=== PATIENT | female | born 1950 | race Two or more races ===

== ENCOUNTER 2020-11-28 19:24 | Emergency (ER) | payer MEDICARE, MEDICAID ==
[~2020-11-28] VITALS: Ht 162.6 cm; Wt 94.8 kg
[~2020-11-28 19:24] MED LIST: GABA300C10 PO; HYDR-2598 PO; LOSA100T30 PO; OXYB5TAB24 PO; PRAV20TA3 PO
[2020-11-28] MEDS ORDERED: ACETAMINOPHEN 500 MG TAB PO ONE (20:30)
[2020-11-28 21:00] VITALS: BP 149/78
[2020-11-28 21:27] LABS: Basophils # (auto) 0 10 ^3/uL (0-0.2); Basophils % (auto) 0.3 % (0.0-2.0); Eosinophils # (auto) 0.3 10 ^3/uL (0-0.8); Eosinophils % (auto) 3.9 % (0.0-7.0); Hematocrit 38.8 % (36.0-46.0); Hemoglobin 13.3 g/dL (12.2-16.2); Lymphocytes # (auto) 1.1 10 ^3/uL (0.4-5.4); Lymphocytes % (auto) 16.6 % (10.0-50.0); Mean Corpuscular Hemoglobin 28.4 pg (28.0-32.0); Mean Corpuscular Hgb Conc. 34.2 g/dL (32.0-36.0); Mean Corpuscular Volume 83.1 fL (80.0-100.0); Monocytes # (auto) 0.6 10 ^3/uL (0-1.3); Monocytes % (auto) 9.1 % (0.0-12.0); Neutrophils # (auto) 4.8 10 ^3/uL (1.6-8.6); Neutrophils % (auto) 70.1 % (37.0-80.0); Nucleated Red Blood Cells % 0.4 %; Platelet Count (auto) 225 10^3/uL (140-450); Red Blood Cells 4.67 10^6/uL (4.0-5.20); Red Cell Distribution Width 15.3 % (11.8-14.3); White Blood Cell 6.8 10^3/uL (4.4-10.8)
[2020-11-28 21:38] LABS: Anion Gap 7 (5-15); Blood Urea Nitrogen 34 mg/dL (7-18); Calcium 8.4 mg/dL (8.5-10.1); Carbon Dioxide 25 mmol/L (21-32); Chloride 101 mmol/L (98-107); Glucose 262 mg/dL (74-106); Magnesium 2.2 mg/dL (1.6-2.6); Sodium 133 mmol/L (136-145)
[2020-11-28 21:42] LABS: Alanine Aminotransferase 28 U/L (13-56); Alkaline Phosphatase 118 U/L (45-117); Aspartate Aminotransferase 16 U/L (15-37); BUN/Creatinine Ratio 24.8; Bilirubin, Total 0.5 mg/dL (0.2-1.0); GFR African American 49 mL/min; GFR Non-African American 40 mL/min
== END 2020-11-28 22:49 | disposition home or self-care (01) ==
LOC: ER 19:24
DX: U07.1 COVID-19 (principal); J12.82 Pneumonia due to coronavirus disease 2019; E11.9 Type 2 diabetes mellitus without complications; K21.9 Gastro-esophageal reflux disease without esophagitis; E78.5 Hyperlipidemia, unspecified; I10 Essential (primary) hypertension; Z90.49 Acquired absence of other specified parts of digestive tract; Z90.710 Acquired absence of both cervix and uterus
CPT/HCPCS: 36415; 71045; 80053; 83735; 83880; 84484; 85025; 87426; 93005; 99285; C9803; U0003

== ENCOUNTER 2022-04-28 09:38 | Emergency (ER) | payer MEDICARE, MEDICAID ==
[~2022-04-28] VITALS: Ht 162.6 cm; Wt 92.5 kg
[2022-04-28 11:00] VITALS: BP 112/60
== END 2022-04-28 13:23 | disposition home or self-care (01) ==
LOC: ER 09:38
DX: M79.671 Pain in right foot (principal); R22.41 Localized swelling, mass and lump, right lower limb; I10 Essential (primary) hypertension; E11.9 Type 2 diabetes mellitus without complications; E03.9 Hypothyroidism, unspecified; K21.9 Gastro-esophageal reflux disease without esophagitis; J45.909 Unspecified asthma, uncomplicated; Z90.49 Acquired absence of other specified parts of digestive tract; Z90.710 Acquired absence of both cervix and uterus; Z79.899 Other long term (current) drug therapy
CPT/HCPCS: 73630

== ENCOUNTER 2022-11-24 16:56 | Emergency (ER) | payer MEDICARE, MEDICAID, OTHER ==
[~2022-11-24] VITALS: Ht 162.6 cm; Wt 92.7 kg
[2022-11-24 17:30] VITALS: BP 136/74
== END 2022-11-24 20:18 | disposition home or self-care (01) ==
LOC: ER 16:56
DX: S39.012A Strain of muscle, fascia and tendon of lower back, initial encounter (principal); S16.1XXA Strain of muscle, fascia and tendon at neck level, initial encounter; I10 Essential (primary) hypertension; E11.9 Type 2 diabetes mellitus without complications; J45.909 Unspecified asthma, uncomplicated; K21.9 Gastro-esophageal reflux disease without esophagitis; E78.5 Hyperlipidemia, unspecified; E03.9 Hypothyroidism, unspecified; G89.29 Other chronic pain; M54.50 Low back pain, unspecified; Z79.899 Other long term (current) drug therapy; V43.52XA Car driver injured in collision with other type car in traffic accident, initial encounter; Y93.89 Activity, other specified; Y92.410 Unspecified street and highway as the place of occurrence of the external cause; Y99.8 Other external cause status
CPT/HCPCS: 72040; 72100

== ENCOUNTER 2023-01-17 11:31 | Emergency (ER) | payer MEDICARE, MEDICAID, OTHER ==
[~2023-01-17] VITALS: Ht 162.6 cm; Wt 93.3 kg
[2023-01-17 12:30] VITALS: BP 135/74
[2023-01-17] MEDS ORDERED: CEPH-510 PO (13:04)
[2023-01-17] MEDS ORDERED: ERY05OO OP (13:04)
[2023-01-17] MEDS ORDERED: ACET1CAP14 PO (13:05)
[2023-01-17] MEDS ORDERED: ACETAMINOPHEN 500 MG TAB PO ONE (13:15)
[2023-01-17] MEDS ORDERED: cefTRIAXone SOD 1,000 MG VL IM ONE (13:15)
== END 2023-01-17 13:17 | disposition home or self-care (01) ==
LOC: ER 11:31
DX: H00.014 Hordeolum externum left upper eyelid (principal); J45.909 Unspecified asthma, uncomplicated; E11.9 Type 2 diabetes mellitus without complications; K21.9 Gastro-esophageal reflux disease without esophagitis; E78.5 Hyperlipidemia, unspecified; I10 Essential (primary) hypertension; Z90.49 Acquired absence of other specified parts of digestive tract; Z90.710 Acquired absence of both cervix and uterus
CPT/HCPCS: 96372; 99283; J0696

== ENCOUNTER 2023-03-04 10:32 | Emergency (ER) | payer MEDICARE, MEDICAID ==
[~2023-03-04] VITALS: Ht 165.1 cm; Wt 93.9 kg
[~2023-03-04 10:32] MED LIST changes: +ACET1CAP14 PO; +CEPH-510 PO; +ERY05OO OP
[2023-03-04] MEDS ORDERED: DexAMETHasone SOD PHOS 10MG/1ML VIAL INJ IM ONE (10:45)
[2023-03-04] MEDS ORDERED: KETOROLAC TROMETH 60MG/2ML VIAL IM ONE (10:45)
[2023-03-04 11:10] LABS: Basophils # (auto) 0 10 ^3/uL (0-0.2); Basophils % (auto) 0.3 % (0.0-2.0); Eosinophils # (auto) 0.1 10 ^3/uL (0-0.8); Eosinophils % (auto) 1.5 % (0.0-7.0); Hematocrit 37.8 % (36.0-46.0); Hemoglobin 12.7 g/dL (12.2-16.2); Lymphocytes # (auto) 0.9 10 ^3/uL (0.4-5.4); Lymphocytes % (auto) 9.1 % (10.0-50.0); Mean Corpuscular Hemoglobin 27.6 pg (28.0-32.0); Mean Corpuscular Hgb Conc. 33.7 g/dL (32.0-36.0); Mean Corpuscular Volume 81.9 fL (80.0-100.0); Monocytes # (auto) 0.7 10 ^3/uL (0-1.3); Monocytes % (auto) 7.5 % (0.0-12.0); Neutrophils # (auto) 7.8 10 ^3/uL (1.6-8.6); Neutrophils % (auto) 81.6 % (37.0-80.0); Red Blood Cells 4.62 10^6/uL (4.0-5.20); Red Cell Distribution Width 14.4 % (11.8-14.3); White Blood Cell 9.6 10^3/uL (4.4-10.8)
[2023-03-04 11:32] LABS: Albumin 3.2 g/dL (3.4-5.0); Calcium 8.8 mg/dL (8.5-10.1); Potassium 3.6 mmol/L (3.5-5.1)
[2023-03-04 11:36] LABS: BUN/Creatinine Ratio 18.3 (10.0-20.0); Bilirubin, Total 0.8 mg/dL (0.2-1.0); Total Protein 6.4 g/dL (6.4-8.2)
[2023-03-04] MEDS ORDERED: LORA10CA7 PO (16:26)
[2023-03-04] MEDS ORDERED: BENZ100C19 PO (16:26)
[2023-03-04 16:38] VITALS: BP 110/80
== END 2023-03-04 16:38 | disposition home or self-care (01) ==
LOC: ER 10:32
DX: J06.9 Acute upper respiratory infection, unspecified (principal); R51.9 Headache, unspecified; J45.909 Unspecified asthma, uncomplicated; E11.9 Type 2 diabetes mellitus without complications; K21.9 Gastro-esophageal reflux disease without esophagitis; E78.5 Hyperlipidemia, unspecified; I10 Essential (primary) hypertension; Z90.49 Acquired absence of other specified parts of digestive tract; Z90.710 Acquired absence of both cervix and uterus; Z88.1 Allergy status to other antibiotic agents
CPT/HCPCS: 36415; 71046; 80053; 83880; 84484; 85025; 85652; 87070; 87804; 87880; 96372; 99284; J1100; J1885

== ENCOUNTER 2023-05-12 13:52 | Inpatient (IN) | payer MEDICARE, MEDICAID ==
[~2023-05-12] VITALS: Ht 162.6 cm; Wt 103.7 kg
[~2023-05-12 13:52] MED LIST changes: +BENZ100C19 PO; +GABA-1250 PO; -GABA300C10 PO; +LORA10CA PO
[2023-05-12] MEDS ORDERED: ASPirin 325 MG TAB PO ONE (14:15)
[2023-05-12 14:25] LABS: Basophils # (auto) 0 10 ^3/uL (0-0.2); Basophils % (auto) 0.4 % (0.0-2.0); Eosinophils # (auto) 0 10 ^3/uL (0-0.8); Lymphocytes # (auto) 0.9 10 ^3/uL (0.4-5.4); Nucleated Red Blood Cells % 0.1 %
[2023-05-12 14:27] LABS: Eosinophils % (auto) 0.3 % (0.0-7.0); Hemoglobin 13.8 g/dL (12.2-16.2); Lymphocytes % (auto) 8.1 % (10.0-50.0); Mean Corpuscular Hemoglobin 26.4 pg (28.0-32.0); Mean Corpuscular Hgb Conc. 32.2 g/dL (32.0-36.0); Mean Corpuscular Volume 82.2 fL (80.0-100.0); Monocytes # (auto) 0.2 10 ^3/uL (0-1.3); Monocytes % (auto) 2.3 % (0.0-12.0); Neutrophils # (auto) 9.7 10 ^3/uL (1.6-8.6); Neutrophils % (auto) 88.9 % (37.0-80.0); Red Blood Cells 5.23 10^6/uL (4.0-5.20); Red Cell Distribution Width 16.3 % (11.8-14.3); White Blood Cell 10.9 10^3/uL (4.4-10.8)
[2023-05-12 14:44] LABS: Calcium 9.4 mg/dL (8.5-10.1); Potassium 4.5 mmol/L (3.5-5.1)
[2023-05-12 14:48] LABS: BUN/Creatinine Ratio 22.5 (10.0-20.0); Bilirubin, Total 0.4 mg/dL (0.2-1.0); Total Protein 7.8 g/dL (6.4-8.2)
[2023-05-12 14:54] LABS: Urine Bacteria NONE SEEN /hpf (None Seen); Urine Blood Negative /uL (Negative); Urine Specific Gravity 1.019 (1.001-1.035); Urine WBC <1 /hpf (0 - 5)
[2023-05-12] MEDS ORDERED: MORPHINE SULFATE 4 MG/ML SYR/VIAL IV PRN (16:30)
[2023-05-12] MEDS ORDERED: NITROGLYCERIN 0.4 MG SL TAB SL PRN (16:30)
[2023-05-12] MEDS ORDERED: ONDANSETRON HCL 4 MG/2 ML VIAL IV PRN (16:30)
[2023-05-12] MEDS ORDERED: ACETAMINOPHEN 325 MG TAB PO PRN (16:30)
[2023-05-12 17:23] LABS: Creatinine, Urine 142 mg/dL (30.0-125.0); Sodium Urine 55 mmol/L (40-220)
[2023-05-12 17:24] LABS: INR 0.95 (0.9-1.15)
[2023-05-12 20:04] VITALS: PULSE 95; RESP 16; O2SAT 93
[2023-05-12] MEDS: ENOXAPARIN SOD 100 MG/1 ML SYRINGE SC SCH (23:08)
[2023-05-12] MEDS: GABAPENTIN 300 MG CAP PO SCH (23:08)
[2023-05-12] MEDS: OXYBUTYNIN CHL 5 MG TAB PO SCH (23:08)
[2023-05-13] MEDS: OXYBUTYNIN CHL 5 MG TAB PO SCH ×3 (06:37→21:20)
[2023-05-13] MEDS: GABAPENTIN 300 MG CAP PO SCH ×3 (06:37→21:20)
[2023-05-13 06:54] VITALS: PULSE 72; RESP 19; O2SAT 94
[2023-05-13 07:35] LABS: Basophils # (auto) 0 10 ^3/uL (0-0.2); Basophils % (auto) 0.4 % (0.0-2.0); Eosinophils # (auto) 0.1 10 ^3/uL (0-0.8); Eosinophils % (auto) 1.6 % (0.0-7.0); Hematocrit 39.5 % (36.0-46.0); Hemoglobin 12.8 g/dL (12.2-16.2); Lymphocytes # (auto) 1.4 10 ^3/uL (0.4-5.4); Lymphocytes % (auto) 18.2 % (10.0-50.0); Mean Corpuscular Hemoglobin 26.8 pg (28.0-32.0); Mean Corpuscular Hgb Conc. 32.4 g/dL (32.0-36.0); Mean Corpuscular Volume 82.5 fL (80.0-100.0); Monocytes # (auto) 0.6 10 ^3/uL (0-1.3); Monocytes % (auto) 7.7 % (0.0-12.0); Neutrophils # (auto) 5.4 10 ^3/uL (1.6-8.6); Neutrophils % (auto) 72.1 % (37.0-80.0); Red Blood Cells 4.79 10^6/uL (4.0-5.20); Red Cell Distribution Width 16.7 % (11.8-14.3); White Blood Cell 7.5 10^3/uL (4.4-10.8)
[2023-05-13 08:00] VITALS: BP 93/48; PULSE 71; PULSE 75; RESP 18; TEMP 98; O2SAT 98
[2023-05-13 08:54] LABS: Albumin 3.3 g/dL (3.4-5.0); BUN/Creatinine Ratio 26.3 (10.0-20.0); Bilirubin, Total 0.5 mg/dL (0.2-1.0); Calcium 9.1 mg/dL (8.5-10.1); Potassium 3.5 mmol/L (3.5-5.1)
[2023-05-13 09:00] VITALS: BP 93/48; PULSE 71; RESP 18; TEMP 98; O2SAT 98
[2023-05-13] MEDS ORDERED: PRAVASTATIN SODIUM 20 MG TAB PO SCH (10:00)
[2023-05-13] MEDS ORDERED: HCTZ 25 MG TAB PO SCH (10:00)
[2023-05-13] MEDS ORDERED: LOSARTAN POTASSIUM 50 MG TAB PO SCH (10:00)
[2023-05-13] MEDS: LOSARTAN POTASSIUM 50 MG TAB PO SCH (10:00)
[2023-05-13] MEDS ORDERED: ALENDRONATE SODIUM 10 MG TAB PO SCH (11:15)
[2023-05-13] MEDS ORDERED: SERT-160 PO (11:27)
[2023-05-13] MEDS ORDERED: FAMO20TA10 PO (11:27)
[2023-05-13] MEDS ORDERED: HYDR2.5O TOP (11:27)
[2023-05-13] MEDS ORDERED: METF-1145 PO (11:27)
[2023-05-13] MEDS: DOCUSATE SOD 100 MG CAP PO SCH (11:29)
[2023-05-13] MEDS: ASPirin 81 mg TAB PO SCH (11:29)
[2023-05-13] MEDS: ENOXAPARIN SOD 100 MG/1 ML SYRINGE SC SCH (11:31)
[2023-05-13] MEDS: PANTOPRAZOLE 40 MG/10 ML VIAL INJ IV SCH (11:31)
[2023-05-13 12:00] LABS: Cholesterol 236 mg/dL (< 200); Triglycerides 180 mg/dL (< 150)
[2023-05-13] MEDS ORDERED: DEXTROSE (50%) 50ML SYRG IV PRN (12:00)
[2023-05-13 12:01] LABS: HDL Cholesterol 58 mg/dL (40-59); LDL Cholesterol 149 mg/dL (< 100)
[2023-05-13] MEDS: InsuLIN REG 1unit/0.01ml Soln (100units/ml) SC SCH ×2 (17:00→21:25)
[2023-05-13 17:05] VITALS: BP 132/68; PULSE 71; RESP 18; TEMP 97.8; O2SAT 93
[2023-05-13] MEDS: ACCU-CHEK COMFORT CURVE STRIP VI SCH ×2 (17:19→21:24)
[2023-05-13 20:00] VITALS: PULSE 76; PULSE 83; RESP 18; O2SAT 98
[2023-05-13 22:00] VITALS: BP 139/73; PULSE 90; RESP 19; TEMP 98.5; O2SAT 93
[2023-05-13] MEDS ORDERED: ATORVASTATIN 20 MG TAB PO SCH (22:00)
[2023-05-14] VITALS (19 sets, daily range): BP systolic 108–141; BP diastolic 60–88; PULSE 68–99; RESP 16–24; TEMP 98.1–99.3; O2SAT 89–99
[2023-05-14] MEDS: HYDROcodone-ACET 5/325MG TAB PO PRN ×4 (02:24→22:46)
[2023-05-14] MEDS: OXYBUTYNIN CHL 5 MG TAB PO SCH ×3 (06:19→21:24)
[2023-05-14] MEDS: GABAPENTIN 300 MG CAP PO SCH ×3 (06:19→21:24)
[2023-05-14] MEDS: ACCU-CHEK COMFORT CURVE STRIP VI SCH ×4 (06:20→22:40)
[2023-05-14] MEDS: InsuLIN REG 1unit/0.01ml Soln (100units/ml) SC SCH ×4 (06:20→22:45)
[2023-05-14 06:37] LABS: Basophils # (auto) 0 10 ^3/uL (0-0.2); Basophils % (auto) 0.4 % (0.0-2.0); Eosinophils # (auto) 0.1 10 ^3/uL (0-0.8); Eosinophils % (auto) 1.2 % (0.0-7.0); Hematocrit 37.5 % (36.0-46.0); Hemoglobin 12.2 g/dL (12.2-16.2); Lymphocytes # (auto) 1.2 10 ^3/uL (0.4-5.4); Lymphocytes % (auto) 12.2 % (10.0-50.0); Mean Corpuscular Hemoglobin 27.1 pg (28.0-32.0); Mean Corpuscular Hgb Conc. 32.7 g/dL (32.0-36.0); Mean Corpuscular Volume 82.8 fL (80.0-100.0); Monocytes # (auto) 0.9 10 ^3/uL (0-1.3); Monocytes % (auto) 8.6 % (0.0-12.0); Neutrophils # (auto) 7.8 10 ^3/uL (1.6-8.6); Neutrophils % (auto) 77.6 % (37.0-80.0); Red Blood Cells 4.53 10^6/uL (4.0-5.20); Red Cell Distribution Width 16.7 % (11.8-14.3); White Blood Cell 10.1 10^3/uL (4.4-10.8)
[2023-05-14 06:47] LABS: Potassium 3.2 mmol/L (3.5-5.1)
[2023-05-14 06:59] LABS: Albumin 3.3 g/dL (3.4-5.0); BUN/Creatinine Ratio 28.5 (10.0-20.0); Bilirubin, Total 0.4 mg/dL (0.2-1.0); Calcium 9.1 mg/dL (8.5-10.1)
[2023-05-14] MEDS ORDERED: LEVOTHYROXINE SODIUM 50 MCG TAB PO SCH (07:00)
[2023-05-14] MEDS ORDERED: POTASSIUM CHLORIDE 8 MEQ TAB PO ONE (07:45)
[2023-05-14] MEDS ORDERED: ATORVASTATIN 20 MG TAB PO SCH (08:00)
[2023-05-14] MEDS ORDERED: COLCHICINE 0.6 MG CAP PO ONE (09:30)
[2023-05-14] MEDS: CHOLECALCIFEROL (VITD3) 2,000 UNIT CAP/TAB PO SCH (10:03)
[2023-05-14] MEDS: ASPirin 81 mg TAB PO SCH (10:03)
[2023-05-14] MEDS: DOCUSATE SOD 100 MG CAP PO SCH (10:04)
[2023-05-14] MEDS: LOSARTAN POTASSIUM 50 MG TAB PO SCH (10:04)
[2023-05-14] MEDS: SERTRALINE HCL 50 MG TAB PO SCH (10:04)
[2023-05-14] MEDS: ALLOPURINOL 300 MG TAB PO SCH (10:04)
[2023-05-14] MEDS: ENOXAPARIN SOD 40 MG/0.4 ML SYRINGE SC SCH (10:04)
[2023-05-14] MEDS: PANTOPRAZOLE 40 MG/10 ML VIAL INJ IV SCH (10:04)
[2023-05-14] MEDS ORDERED: KETOROLAC TROMETH 30 MG/ML 1ML VIAL IV ONE (10:15)
[2023-05-14] MEDS ORDERED: REGADENOSON 0.4 MG/5 ML SYRG IV ONE ×2 (14:03→14:15)
[2023-05-14] MEDS ORDERED: PROMETHAZINE HCL 25 MG/ML 1ML IV ONE (15:15)
[2023-05-14] MEDS ORDERED: ANGIOMAX 250 MG VIAL IV ONE (17:04)
[2023-05-14] MEDS ORDERED: HEPARIN SODIUM (PORCINE) 5000 UNITS/ML 1ML VIAL ONE (17:04)
[2023-05-14] MEDS ORDERED: VERAPAMIL 2.5MG/ML INJ 2ML VIAL IV ONE (17:05)
[2023-05-14] MEDS ORDERED: MIDAZOLAM HCL 2MG/2ML 2ml VIAL (1mg/ml) ONE (17:05)
[2023-05-14] MEDS ORDERED: SODIUM CHL 0.9% 0 ML ONE (17:05)
[2023-05-14] MEDS ORDERED: fentaNYL CITRATE 100 MCG/2 ML VL ONE (17:05)
[2023-05-14] MEDS ORDERED: LIDOCAINE 2%HCL (LOCAL ANESTH.) INJ 20ML MDV ONE (17:05)
[2023-05-14] MEDS ORDERED: hydrALAZINE HCL 20 MG/ML VL ONE (17:55)
[2023-05-14] MEDS: COLCHICINE 0.6 MG CAP PO SCH (21:24)
[2023-05-15] VITALS (8 sets, daily range): BP systolic 103–130; BP diastolic 54–69; PULSE 74–88; RESP 16–22; TEMP 98.2–99.1; O2SAT 92–97
[2023-05-15] MEDS: GABAPENTIN 300 MG CAP PO SCH ×3 (06:08→21:17)
[2023-05-15] MEDS: OXYBUTYNIN CHL 5 MG TAB PO SCH ×3 (06:08→21:17)
[2023-05-15 06:20] LABS: Basophils # (auto) 0 10 ^3/uL (0-0.2); Basophils % (auto) 0.3 % (0.0-2.0); Eosinophils # (auto) 0.1 10 ^3/uL (0-0.8); Eosinophils % (auto) 0.6 % (0.0-7.0); Hematocrit 36.5 % (36.0-46.0); Hemoglobin 11.9 g/dL (12.2-16.2); Lymphocytes # (auto) 0.9 10 ^3/uL (0.4-5.4); Lymphocytes % (auto) 10.2 % (10.0-50.0); Mean Corpuscular Hgb Conc. 32.5 g/dL (32.0-36.0); Mean Corpuscular Volume 83.1 fL (80.0-100.0); Monocytes # (auto) 1.1 10 ^3/uL (0-1.3); Monocytes % (auto) 12.3 % (0.0-12.0); Neutrophils # (auto) 7.1 10 ^3/uL (1.6-8.6); Neutrophils % (auto) 76.6 % (37.0-80.0); Nucleated Red Blood Cells % 0.1 %; Red Blood Cells 4.39 10^6/uL (4.0-5.20); Red Cell Distribution Width 16.9 % (11.8-14.3); White Blood Cell 9.2 10^3/uL (4.4-10.8)
[2023-05-15 06:56] LABS: Calcium 8.6 mg/dL (8.5-10.1); Potassium 3.6 mmol/L (3.5-5.1)
[2023-05-15] MEDS: InsuLIN REG 1unit/0.01ml Soln (100units/ml) SC SCH ×4 (06:58→21:23)
[2023-05-15 06:59] LABS: BUN/Creatinine Ratio 27.3 (10.0-20.0)
[2023-05-15] MEDS: LEVOTHYROXINE SODIUM 50 MCG TAB PO SCH (07:04)
[2023-05-15] MEDS: ACCU-CHEK COMFORT CURVE STRIP VI SCH ×4 (07:04→21:23)
[2023-05-15] MEDS: CHOLECALCIFEROL (VITD3) 2,000 UNIT CAP/TAB PO SCH (09:56)
[2023-05-15] MEDS: ASPirin 81 mg TAB PO SCH (09:56)
[2023-05-15] MEDS: GEMFIBROZIL 600 MG TAB PO SCH (09:56)
[2023-05-15] MEDS: DOCUSATE SOD 100 MG CAP PO SCH (09:56)
[2023-05-15] MEDS: PANTOPRAZOLE 40 MG/10 ML VIAL INJ IV SCH (09:56)
[2023-05-15] MEDS: ALLOPURINOL 300 MG TAB PO SCH (09:56)
[2023-05-15] MEDS: COLCHICINE 0.6 MG CAP PO SCH ×2 (09:57→21:17)
[2023-05-15] MEDS: SERTRALINE HCL 50 MG TAB PO SCH (09:58)
[2023-05-15] MEDS: ENOXAPARIN SOD 40 MG/0.4 ML SYRINGE SC SCH (09:58)
[2023-05-15] MEDS: LOSARTAN POTASSIUM 50 MG TAB PO SCH (10:01)
[2023-05-15] MEDS: HYDROcodone-ACET 5/325MG TAB PO PRN ×2 (10:01→21:18)
[2023-05-16] VITALS (7 sets, daily range): BP systolic 95–119; BP diastolic 38–61; PULSE 74–83; RESP 16–20; TEMP 97.7–98.7; O2SAT 90–93
[2023-05-16] MEDS: ACCU-CHEK COMFORT CURVE STRIP VI SCH ×5 (06:00→22:03)
[2023-05-16] MEDS: OXYBUTYNIN CHL 5 MG TAB PO SCH ×3 (06:09→22:01)
[2023-05-16] MEDS: GABAPENTIN 300 MG CAP PO SCH ×3 (06:09→22:01)
[2023-05-16] MEDS: LEVOTHYROXINE SODIUM 50 MCG TAB PO SCH (06:12)
[2023-05-16] MEDS: InsuLIN REG 1unit/0.01ml Soln (100units/ml) SC SCH ×4 (06:21→22:00)
[2023-05-16] MEDS: ASPirin 81 mg TAB PO SCH (09:23)
[2023-05-16] MEDS: PANTOPRAZOLE 40 MG/10 ML VIAL INJ IV SCH (09:23)
[2023-05-16] MEDS: COLCHICINE 0.6 MG CAP PO SCH ×2 (09:23→22:01)
[2023-05-16] MEDS: HYDROcodone-ACET 5/325MG TAB PO PRN ×3 (09:23→22:07)
[2023-05-16] MEDS: ENOXAPARIN SOD 40 MG/0.4 ML SYRINGE SC SCH (09:23)
[2023-05-16] MEDS: CHOLECALCIFEROL (VITD3) 2,000 UNIT CAP/TAB PO SCH (09:24)
[2023-05-16] MEDS: DOCUSATE SOD 100 MG CAP PO SCH (09:24)
[2023-05-16] MEDS: ALLOPURINOL 300 MG TAB PO SCH (09:24)
[2023-05-16] MEDS: GEMFIBROZIL 600 MG TAB PO SCH (09:24)
[2023-05-16] MEDS: SERTRALINE HCL 50 MG TAB PO SCH (09:24)
[2023-05-16] MEDS: LOSARTAN POTASSIUM 50 MG TAB PO SCH (09:27)
[2023-05-17] VITALS (7 sets, daily range): BP systolic 103–139; BP diastolic 53–65; PULSE 68–77; RESP 17–21; TEMP 97.8–98.5; O2SAT 92–95
[2023-05-17] MEDS: LEVOTHYROXINE SODIUM 50 MCG TAB PO SCH (05:47)
[2023-05-17] MEDS: GABAPENTIN 300 MG CAP PO SCH ×3 (05:47→21:19)
[2023-05-17] MEDS: OXYBUTYNIN CHL 5 MG TAB PO SCH ×3 (05:53→21:19)
[2023-05-17] MEDS: InsuLIN REG 1unit/0.01ml Soln (100units/ml) SC SCH ×4 (05:55→21:27)
[2023-05-17] MEDS: ENOXAPARIN SOD 40 MG/0.4 ML SYRINGE SC SCH (10:00)
[2023-05-17] MEDS: DOCUSATE SOD 100 MG CAP PO SCH (10:00)
[2023-05-17] MEDS: GEMFIBROZIL 600 MG TAB PO SCH (10:22)
[2023-05-17] MEDS: COLCHICINE 0.6 MG CAP PO SCH ×2 (10:22→21:19)
[2023-05-17] MEDS: ASPirin 81 mg TAB PO SCH (10:22)
[2023-05-17] MEDS: ALLOPURINOL 300 MG TAB PO SCH (10:22)
[2023-05-17] MEDS: SERTRALINE HCL 50 MG TAB PO SCH (10:22)
[2023-05-17] MEDS: CHOLECALCIFEROL (VITD3) 2,000 UNIT CAP/TAB PO SCH (10:22)
[2023-05-17] MEDS: PANTOPRAZOLE 40 MG/10 ML VIAL INJ IV SCH (10:23)
[2023-05-17] MEDS: LOSARTAN POTASSIUM 50 MG TAB PO SCH (10:23)
[2023-05-17 11:38] LABS: Basophils # (auto) 0 10 ^3/uL (0-0.2); Basophils % (auto) 0.6 % (0.0-2.0); Eosinophils # (auto) 0.2 10 ^3/uL (0-0.8); Eosinophils % (auto) 5.2 % (0.0-7.0); Hemoglobin 10.5 g/dL (12.2-16.2); Lymphocytes # (auto) 0.8 10 ^3/uL (0.4-5.4); Mean Corpuscular Hemoglobin 26.6 pg (28.0-32.0); Mean Corpuscular Hgb Conc. 32.5 g/dL (32.0-36.0); Monocytes # (auto) 0.5 10 ^3/uL (0-1.3); Neutrophils # (auto) 2.9 10 ^3/uL (1.6-8.6)
[2023-05-17 11:39] LABS: Hematocrit 32.4 % (36.0-46.0); Lymphocytes % (auto) 18.2 % (10.0-50.0); Mean Corpuscular Volume 82.1 fL (80.0-100.0); Monocytes % (auto) 10.2 % (0.0-12.0); Neutrophils % (auto) 65.8 % (37.0-80.0); Nucleated Red Blood Cells % 0.1 %; Red Blood Cells 3.95 10^6/uL (4.0-5.20); Red Cell Distribution Width 16.7 % (11.8-14.3); White Blood Cell 4.4 10^3/uL (4.4-10.8)
[2023-05-17] MEDS: ACCU-CHEK COMFORT CURVE STRIP VI SCH ×3 (11:56→21:19)
[2023-05-17 12:04] LABS: Potassium 4.1 mmol/L (3.5-5.1)
[2023-05-17 12:06] LABS: BUN/Creatinine Ratio 36.1 (10.0-20.0); Uric Acid 4.9 mg/dL (2.6-6.0)
[2023-05-17] MEDS: HYDROcodone-ACET 5/325MG TAB PO PRN ×2 (15:35→21:19)
[2023-05-18 05:00] VITALS: BP 115/66; PULSE 67; RESP 20; TEMP 98; O2SAT 92
[2023-05-18] MEDS: ACCU-CHEK COMFORT CURVE STRIP VI SCH ×3 (06:09→17:00)
[2023-05-18] MEDS: OXYBUTYNIN CHL 5 MG TAB PO SCH ×2 (06:09→14:03)
[2023-05-18] MEDS: LEVOTHYROXINE SODIUM 50 MCG TAB PO SCH (06:09)
[2023-05-18] MEDS: GABAPENTIN 300 MG CAP PO SCH ×2 (06:09→14:03)
[2023-05-18] MEDS: InsuLIN REG 1unit/0.01ml Soln (100units/ml) SC SCH ×3 (06:12→17:00)
[2023-05-18 08:00] VITALS: PULSE 64; RESP 18; O2SAT 94
[2023-05-18 09:00] VITALS: BP 125/62; PULSE 63; RESP 18; TEMP 98.4; O2SAT 94
[2023-05-18] MEDS: PANTOPRAZOLE 40 MG/10 ML VIAL INJ IV SCH (10:00)
[2023-05-18] MEDS: ENOXAPARIN SOD 40 MG/0.4 ML SYRINGE SC SCH (10:08)
[2023-05-18] MEDS: ASPirin 81 mg TAB PO SCH (10:08)
[2023-05-18] MEDS: GEMFIBROZIL 600 MG TAB PO SCH (10:08)
[2023-05-18] MEDS: CHOLECALCIFEROL (VITD3) 2,000 UNIT CAP/TAB PO SCH (10:08)
[2023-05-18] MEDS: SERTRALINE HCL 50 MG TAB PO SCH (10:09)
[2023-05-18] MEDS: ALLOPURINOL 300 MG TAB PO SCH (10:09)
[2023-05-18] MEDS: LOSARTAN POTASSIUM 50 MG TAB PO SCH (10:09)
[2023-05-18] MEDS: DOCUSATE SOD 100 MG CAP PO SCH (10:09)
[2023-05-18] MEDS: HYDROcodone-ACET 5/325MG TAB PO PRN ×2 (10:20→14:03)
[2023-05-18 13:00] VITALS: BP 144/78; PULSE 71; RESP 20; TEMP 98.1; O2SAT 97
[2023-05-18] MEDS ORDERED: LEVO125T PO (16:49)
[2023-05-18] MEDS ORDERED: ALL300T PO (16:49)
[2023-05-18 17:25] VITALS: BP 125/80; PULSE 72; RESP 20; TEMP 98.2; O2SAT 96
== END 2023-05-18 18:03 | disposition home or self-care (01) | DRG 287 ==
LOC: ER 13:52 → TELE 16:28 → TELE-WESTW 05-13 00:38
PROVIDERS: ADMIT Internal Medicine; ATTEND Emergency Medicine
PROC: B211YZZ Fluoroscopy of Multiple Coronary Arteries using Other Contrast (ICD-10-PCS; principal; 2023-05-14)
PROC: B215YZZ Fluoroscopy of Left Heart using Other Contrast (ICD-10-PCS; 2023-05-14)
PROC: 4A023N7 Measurement of Cardiac Sampling and Pressure, Left Heart, Percutaneous Approach (ICD-10-PCS; 2023-05-14)
DX: R07.9 Chest pain, unspecified (principal); J45.901 Unspecified asthma with (acute) exacerbation; E44.1 Mild protein-calorie malnutrition; N17.9 Acute kidney failure, unspecified; I50.32 Chronic diastolic (congestive) heart failure; E11.65 Type 2 diabetes mellitus with hyperglycemia; E78.5 Hyperlipidemia, unspecified; I35.9 Nonrheumatic aortic valve disorder, unspecified; E66.01 Morbid (severe) obesity due to excess calories; K21.9 Gastro-esophageal reflux disease without esophagitis; D72.829 Elevated white blood cell count, unspecified; F32.A Depression, unspecified; F41.9 Anxiety disorder, unspecified; Z96.652 Presence of left artificial knee joint; I36.1 Nonrheumatic tricuspid (valve) insufficiency; M25.461 Effusion, right knee; I11.0 Hypertensive heart disease with heart failure; E87.6 Hypokalemia; E03.9 Hypothyroidism, unspecified; Z79.1 Long term (current) use of non-steroidal anti-inflammatories (NSAID); Z79.899 Other long term (current) drug therapy; Z90.710 Acquired absence of both cervix and uterus; Z90.49 Acquired absence of other specified parts of digestive tract; Z83.3 Family history of diabetes mellitus; Z82.49 Family history of ischemic heart disease and other diseases of the circulatory system; Z79.84 Long term (current) use of oral hypoglycemic drugs; Z68.39 Body mass index [BMI] 39.0-39.9, adult; E87.70 Fluid overload, unspecified
CPT/HCPCS: 36415; 71046; 73560; 76881; 76942; 78452; 80048; 80053; 80061; 81001; 82570; 82962; 83036; 83735; 83880; 83986; 84300; 84443; 84484; 84550; 84560; 85025; 85379; 85610; 87205; 89051; 93005; 93017; 93306; 93458; 97110; 97116; 97163; 97530; 99152; C9113; G0378; J1815; J1885; J2250

== ENCOUNTER 2025-10-12 09:00 | Inpatient (IN) | payer MEDICARE, MEDICAID ==
[~2025-10-12] VITALS: Ht 162.6 cm; Wt 85.4 kg
[~2025-10-12 09:00] MED LIST changes: +ALL300T PO; -CEPH-510 PO; +FAMO20TA10 PO; +HYDR2.5O TOP; +LEVO125T PO; +METF-1145 PO; +SERT-160 PO
--- NOTE | 2025-10-12 09:29 | ED.PDOC ---
HPI Comments Patient is a 75-year-old female with past medical history of hypertension, diabetes, dyslipidemia, chronic stable angina, MINOCA anxiety, asthma, GERD, thyroid cancer s/p thyroidectomy, who comes in due to chest pain that has been ongoing for the past 5 days. According to the patient, she has been having chest pain which she describes as constant, pressure-like, warm, 5/10 intensity, worsened with standing and relieved by lying down in aspirin. Patient notes she went to her PCP at [facility] yesterday where she was told to go to the ER and she decided to come today. Notes having similar symptoms in the past but current symptoms persisted for longer. On review of systems patient is complaining of chills and shortness of breaths on exertion. Stress test in 2019 was positive for ischemia, subsequently left heart catheterization was done which at that t genaro showed no occlusion and INOCA Past medical history: hypertension, diabetes, dyslipidemia, chronic stable angina, MINOCA anxiety, asthma, GERD, thyroid cancer s/p thyroidectomy Past surgical history: Thyroidectomy, section, hysterectomy, appe ndectomy, cholecystectomy Social & Personal history: Denies smoking, alcohol, drugs. Lives at home with son. Allergies: Denies Patient seen and examined at bedside. Patient is alert and oriented to time, place person and responding to all questions. General: Chills Eyes: No Pain, No Vision change, No Conjunctivae inflammation, No Eyelid inflammation, No Other, No Redness ENT: No Ear pain, No Ear discharge, No Nose pain, No Nose discharge, No Nose congestion, No Mouth pain, No Mouth swelling, No Throat pain, No Throat swelling, No Other Cardiovascular: No Chest Pain, No Palpitations, No Orthopnea, No Paroxysmal No Dyspnea, No Edema, No Lt Headedness, No Other Respiratory: No Cough, No Dry, No Shortness of breath, SOB with exertion, No Wheezing, No Hemoptysis, No Pleuritic Pain, No Sputum, No Other Gastrointestinal: No Nausea, No Vomiting, No Abdominal Pain, No Diarrhea, No Constipation, No Melena, No Hematochezia, No Other Genitourinary: No Dysuria, No Frequency, No Incontinence, No Hematuria, No Retention, No Other Musculoskeletal: No other, No neck pain, No shoulder pain, No arm pain, No back pain, No hand pain, No leg pain, No foot pain Skin: No Rash, No Lesions, No Jaundice, No Bruising, No Other Chief Complaint: Chest Pain Time Seen by MD: 09:15 Primary Care Provider: TIGRE Allergies: Coded Allergies: NO KNOWN ALLERGIES (Unverified , 04/09/15) Home Meds Active Scripts Levothyroxine Sodium (Synthroid) 125 Mcg Tab, 1 TAB PO DAILY, #30 TAB 5 Refills Prov:WILLIE MCGINNIS MD 05/18/23 Allopurinol (ZYLOPRIM TABLET) 300 Mg Tb, 300 MG PO DAILY, #30 TAB 3 Refills Prov:WILLIE MCGINNIS MD 05/18/23 Benzonatate (Tessalon Perles) 100 Mg Cap, 1 CAP PO TID, #21 CAP Prov:MIRI REYES PAC 03/04/23 Loratadine (Claritin) 10 Mg Cap, 10 MG PO DAILY for 14 Days, #14 CAP Prov:MIRI REYES PAC 03/04/23 Acetaminophen (Tylenol) 325 Mg Cap, 325 MG PO Q4HPRN PRN, #30 CAP 0 Refills Take 1-2 caps po q4h prn for pain (Do not exceed 3,000mg of acetaminophen in 24 hours) Prov:MARGY JOSHI [facility] 01/17/23 Erythromycin (Erythromycin) 5 Mg/Gm Oin, 1 APPLIC OP QID for 10 Days, #3.5 GRAMS 0 Refills Apply 1cm ribbon to left eye QID for 10 days. Prov:MARGY JOSHI [facility] 01/17/23 Reported Medications Metformin Hydrochloride (Metformin Hcl Er) 500 Mg Tab, 1 TAB PO BID 05/13/23 Sertraline Hcl (Sertraline Hcl) 100 Mg Tab, 1 TAB PO DAILY 05/13/23 Hydrocortisone Base (Hydrocortisone) 2.5 % Oin, TOP 05/13/23 Famotidine (PEPCID TABLET) 20 Mg Tb, 1 TAB PO DAILY 05/13/23 Gabapentin (Gabapentin) 300 Mg Cap, 1 TAB PO TID 04/09/15 Oxybutynin Chloride (Ditropan Xl) 5 Mg Tab, 1 TAB PO BID 04/09/15 Pravastatin Sodium (PRAVACHOL TABLET) 20 Mg Tb, 10 MG PO DAILY 04/09/15 Losartan Potassium & Hydrochlo (Losartan Potassium/Hydroc) 1 Tab Tab, 1 TAB PO DAILY 04/09/15 Hydrocodone-Acetaminophen (Hydrocodone/Acetaminophen) 1 Tab Tab, 1 TAB PO Q6HPRN PRN for MODERATE PAIN 04/09/15 Information Source: Patient Mode of Arrival: Ambulatory Severity: Moderate Timing: Days Duration: Since onset Prehospital treatment: 12 Lead EKG, ASA Location: Chest (L) Radiation: Arm (L) Quality: Pressure Onset: With Light Exertion Cardiac Risk Factors: Hyperlipidemia, HTN, Diabetes History of: Similar pain in past, Angina, Aortic Disease, Aspirin Modifying Factors: Exertion, Coughing, Breathing, Movement, Position, NTG, Rest, Position Change, Other, Nothing Associated Signs and Symptoms: SOB Past Medical History PAST MEDICAL HISTORY: Anxiety, Arthritis, Asthma, Depression, DM, GERD, High Lipids, HTN, Thyroid Surgical History: Appendectomy, Cholecystectomy, , 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 Family History Family History: No family hx of Cancer, No family hx of DM, No family hx of Heart augie, No family hx of HTN Social History Smoker: Non-Smoker Alcohol: Denies ETOH Use Drugs: Denies Drug Use Lives In: Home Physical Exam General Appearance: No Apparent Distress HEENT: Normal ENT Inspection, PERRL/EOMI Neck: None, Non-Tender, Normal, Normal Inspection Respiratory: Lungs Clear, No Accessory Muscle Use, No Respiratory Distress Cardiovascular: No Edema, No JVD, No Murmur, No Gallop, Regular Rate/Rhythm, Other (Chest pain reproducible on palpation) Breast Exam: Deferred Gastrointestinal: Non Tender, No Pulsatile Mass, Normal Bowel Sounds Genitalia: Deferred Pelvic: Deferred Rectal: Rectal Exam not done Extremities: No calf tenderness, Non-tender, No pedal edema Neurologic: Alert, No Motor Deficits, No Sensory Deficits Cerebellar Function: NOT DONE Reflexes: NOT DONE Skin: Dry, Normal Color, Warm Peripheral Pulses: 2+ dorsalis pedis (R), 2+ dorsalis pedis (L) Lymphatic: NOT DONE Was a procedure done? Was a procedure done?: No CP Differential Dx Differential Diagnosis: Angina, Heart Failure Differential Diagnosis: Chest Wall Pain, Costochondritis, Myocardial Infarction X-Ray, Labs, Meds, VS Vital Signs Date Time Temp Pulse Resp B/P (MAP) Pulse Ox O2 Delivery O2 Flow Rate FiO2 10/12/25 10:02 72 10/12/25 10:00 98.2 73 18 136/70 (92) 96 98.2 10/12/25 10:00 73 18 96 Room Air 10/12/25 09:17 98.1 77 16 156/74 99 98.1 10/12/25 09:07 78 Lab Test 10/12/25 10:39 10/12/25 09:35 Range/Units Troponin I High Sensitivity Pending < 3 L </=34 ng/L White Blood Count 8.3 4.4-10.8 10^3/uL Red Blood Count 4.07 4.0-5.20 10^6/uL Hemoglobin 11.0 L 12.2-16.2 g/dL Hematocrit 33.6 L 36.0-46.0 % Mean Corpuscular Volume 82.4 80.0-100.0 fL Mean Corpuscular Hemoglobin 26.9 L 28.0-32.0 pg Mean Corpuscular Hemoglobin Concent 32.7 32.0-36.0 g/dL Red Cell Distribution Width 15.1 H 11.8-14.3 % Platelet Count 207 140-450 10^3/uL Mean Platelet Volume 7.9 6.9-10.8 fL Neutrophils (%) (Auto) 83.8 H 37.0-80.0 % Lymphocytes (%) (Auto) 10.2 10.0-50.0 % Monocytes (%) (Auto) 4.4 0.0-12.0 % Eosinophils (%) (Auto) 1.4 0.0-7.0 % Basophils (%) (Auto) 0.2 0.0-2.0 % Neutrophils # (Auto) 6.9 1.6-8.6 10 ^3/uL Lymphocytes # (Auto) 0.8 0.4-5.4 10 ^3/uL Monocytes # (Auto) 0.4 0-1.3 10 ^3/uL Eosinophils # (Auto) 0.1 0-0.8 10 ^3/uL Basophils # (Auto) 0 0-0.2 10 ^3/uL Nucleated Red Blood Cells 0.0 % Sodium Level 141 136-145 mmol/L Potassium Level 4.1 3.5-5.1 mmol/L Chloride Level 105 98-107 mmol/L Carbon Dioxide Level 27 20-31 mmol/L Anion Gap 9 5-15 Blood Urea Nitrogen 24 H 9-23 mg/dL Creatinine 1.26 H 0.550-1.02 mg/dL Glomerular Filtration Rate Calc 44 >90 mL/min BUN/Creatinine Ratio 19.0 10.0-20.0 Serum Glucose 189 H 74-106 mg/dL Calcium Level 9.4 8.7-10.4 mg/dL Current Medications Medications (Trade) Dose Ordered Sig/Jose L Route Start Time Stop Time Status Last Admin Aspirin 324 mg ONCE ONCE PO 10/12/25 09:30 10/12/25 09:31 DC 10/12/25 09:43 Time of 1ST Reevaluation: 10:20 Reevaluation 1ST: Improved Time of 2ND Reevaluation: 11:00 Reevaluation 2ND: Unchanged Patient Education/Counseling: Diagnosis, Treatment, Prognosis, Need For Follow Up Family Education/Counseling: No Family Present SEPSIS Sepsis Screen Date sepsis recognized/suspect: Oct 12, 2025 Time Sepsis recognized/suspect: 918 Recent Procedure: No On Antibiotic Therapy: No Respiratory Rate >20: No Heart Rate >90: No Temp<36 C (96.8 F) or >38.3 C: No SBP <90 or MAP <65 mmHG: No New Acute Mental Status Change: No Is the patient on CPAP, BIPAP,: No Physician Orders Electrocardigram (10/12/25 12:11) Chest Portable (10/12/25 09:27) Troponin-I Hs (10/12/25 10:27) Troponin-I Hs (10/12/25 12:27) Vital Signs Date Time Temp Pulse Resp B/P (MAP) Pulse Ox O2 Delivery O2 Flow Rate FiO2 10/12/25 10:02 72 10/12/25 10:00 98.2 73 18 136/70 (92) 96 98.2 10/12/25 10:00 73 18 96 Room Air 10/12/25 09:17 98.1 77 16 156/74 99 98.1 10/12/25 09:07 78 Laboratory Tests Test 10/12/25 09:35 White Blood Count 8.3 10^3/uL (4.4-10.8) Medications Medications Dose Ordered Sig/Jose L Route Start Time Stop Time Status Last Admin Dose Admin Aspirin 324 mg ONCE ONCE PO 10/12/25 09:30 10/12/25 09:31 DC 10/12/25 09:43 Departure 1 Departure Time of Disposition: 11:15 Impression: Primary Impression: Chest pain Qualified Codes: R07.9 - Chest pain, unspecified Additional Impression: CAD (coronary artery disease) Qualified Codes: I25.110 - Atherosclerotic heart disease of [place] coronary artery with unstable angina pectoris Disposition: 09 ADMITTED INPATIENT Condition: Guarded Critical Care Note Critical Care Time?: No Stability Stability form required: No Heart Score Heart Score: Heart Score Response (Comments) Value History Moderate Suspicious 1 EKG Normal 0 Age >65 2 Risk Factors >3 or Hx ASHD 2 Troponin Normal limit 0 Total 5 CHARLEE TIRADO RESIDENT Oct 12, 2025 09:29
[2025-10-12 10:00] LABS: Hematocrit 33.6 % (36.0-46.0); Mean Corpuscular Hemoglobin 26.9 pg (28.0-32.0); Nucleated Red Blood Cells % 0.0 %
[2025-10-12 10:02] LABS: Hemoglobin 11.0 g/dL (12.2-16.2); Mean Corpuscular Volume 82.4 fL (80.0-100.0)
[2025-10-12 10:12] LABS: Chloride 105 mmol/L (98-107); Potassium 4.1 mmol/L (3.5-5.1); Sodium 141 mmol/L (136-145)
[2025-10-12 10:13] LABS: Anion Gap 9 (5-15); Carbon Dioxide 27 mmol/L (20-31)
[2025-10-12 10:14] LABS: Calcium 9.4 mg/dL (8.7-10.4)
[2025-10-12 10:19] LABS: BUN/Creatinine Ratio 19.0 (10.0-20.0); Blood Urea Nitrogen 24 mg/dL (9-23); Glucose 189 mg/dL (74-106)
--- NOTE | 2025-10-12 10:22 | DVH ---
CHEST RADIOGRAPH INDICATION: cp TECHNIQUE: Single frontal view of the chest was obtained COMPARISON: XY CHEST TWO VIEWS ROUTINE on DOS: 05/12/23, XY CHEST TWO VIEWS ROUTINE on DOS: 03/04/23, CHEST XRAY 1 VIEW on DOS: 11/28/20 FINDINGS: Lines and Tubes: None Lungs: Clear Pleura: No effusion. No pneumothorax. Cardiomediastinal contours: Unremarkable Bones: Unremarkable IMPRESSION: No acute disease.
--- NOTE | 2025-10-12 10:44 | ECG ---
[facility] Test Date: 2025-10-12 Test Time: 09:07:31 Pat Name: NEO SWENSON Department: ED Room: 0220T Gender: F Felt Checker: CATERINA : 1950 Requested By: ZEB WINSLOW Order Number: [id number] Reading MD: Flaco Vang Measurements Intervals [place] Rate: 78 P: 54 LA: 186 QRS: 38 QRSD: 96 T: -1 QT: 369 QTc: 421 Interpretive Statements Sinus rhythm Low voltage, precordial leads Borderline T abnormalities, inferior leads Baseline wander in lead(s) V4 Electronically Signed On 10-18-2025 8:27:35 PST by Flaco Vang Please click the below link to view image of tracing.
--- NOTE | 2025-10-12 10:44 | ECG ---
[facility] Test Date: 2025-10-12 Test Time: 10:02:25 Pat Name: NEO SWENSON Department: ED Room: 0220T Gender: F Legal Stenographer: TABATHA : 1950 Requested By: ZEB WINSLOW Order Number: [id number] Reading MD: Flaco Vang Measurements Intervals [place] Rate: 72 P: 47 [place]: 192 QRS: 55 QRSD: 92 T: 0 QT: 396 QTc: 434 Interpretive Statements Sinus rhythm Ventricular premature complex Low voltage, precordial leads Borderline T abnormalities, inferior leads Electronically Signed On 10-18-2025 8:27:45 PST by Flaco Vang Please click the below link to view image of tracing.
--- NOTE | 2025-10-12 11:29 | DVHHP2 ---
History of Present Illness Reason for Visit: chest pain History of Present Illness 75-year-old female with extensive past medical history including atrial arrhythmia (irregular heartbeat), hypertension, hyperlipidemia, stable angina, chronic heart failure, chronic kidney disease, diabetes mellitus, anxiety, asthma, GERD, gout, arthritis, glaucoma, thyroid disease status post thyroidectomy for thyroid cancer, presents with left-sided chest pain for five days. She arrived with her son. Patient reports the chest pain began approximately five days ago, located in the left chest wall, radiating to the left shoulder and down the left arm. She describes the pain as pressure-like and worse with movement and palpation, suggesting a musculoskeletal component. She denies prior myocardial infarction but does have a history of heart failure and follows with a melter assistant (name not recalled). She was evaluated at a [facility] yesterday and was advised to come to the ED for further evaluation. while In the ED, aspirin was administered. Laboratory evaluation showed CBC unremarkable, creatinine 1.26, BUN 24, glucose 189. Troponin was negative (x1). Chest X-ray was negative. Review of records shows a prior echocardiogram in 2022 with EF 5560%. Given ongoing chest pain with cardiac risk factors, patient will be admitted for ACS rule-out and telemetry monitoring. Past Medical History See HPI above Past Surgical History See HPI above Family History Reviewed, non-contributory to the management of this case. Past Social History The patient lives at home, denies smoking, alcohol or illicit drugs abuse. Review of Systems Constitutional: No: Fever, Chills, Sweats, Weakness, Malaise, Other Eyes: No: Pain, Vision change, Conjunctivae inflammation, Eyelid inflammation, Other, Redness ENT: No: Ear pain, Ear discharge, Nose pain, Nose discharge, Nose congestion, Mouth pain, Mouth swelling, Throat pain, Throat swelling, Other Respiratory: Shortness of breath; No: Cough, Dry, SOB with excertion, Wheezing, Hemoptysis, Pleuritic Pain, Sputum, Wheezing, Other Cardiovascular: Chest Pain; No: Palpitations, Orthopnea, Paroxysmal Noc. Dyspnea, Edema, Lt Headedness, Other Gastrointestinal: No: Nausea, Vomiting, Abdominal Pain, Diarrhea, Constipation, Melena, Hematochezia, Other Genitourinary: No Dysuria, No Frequency, No Incontinence, No Hematuria, No Retention, No Other Musculoskeletal: No: other, neck pain, shoulder pain, arm pain, back pain, hand pain, leg pain, foot pain Skin: No: Rash, Lesions, Jaundice, Bruising, Other Neurological: No: Weakness, Numbness, Incoordination, Change in speech, Confusion, Seizures, Other Allergies: Coded Allergies: NO KNOWN ALLERGIES (Unverified , 04/09/15) Exam Vital Signs Vital Signs Date Time Temp Pulse Resp B/P (MAP) Pulse Ox O2 Delivery O2 Flow Rate FiO2 10/12/25 10:02 72 10/12/25 10:00 98.2 18 136/70 (92) 96 98.2 10/12/25 10:00 Room Air General Appearance: Alert, Oriented X3, Cooperative, No acute distress HEENT: Atraumatic, PERRLA, EOMI, Mucous membr. moist/pink Respiratory: Clear to auscultation, Normal air movement Cardiovascular: Regular rate, Normal S1, Normal S2, No murmurs Abdominal: Normal bowel sounds, Soft, No tenderness, No hepatospenomegaly, No masses Extremities: No clubbing, No cyanosis, No edema, Normal pulses, No tenderness/swelling Skin: No rashes, No breakdown, No significant lesion Neuro: Other (Neuro nonfocal) Psych/Mental Status: Mental status NL, Mood NL Labs/Xrays Chest x-ray unremarkable I reviewed labs, imaging CT scan abdomen pelvis, EKG and all diagnostic studies on this patient from ED records and the medical chart Labs Test 10/12/25 10:39 10/12/25 09:35 Range/Units Troponin I High Sensitivity < 3 L </=34 ng/L White Blood Count 8.3 4.4-10.8 10^3/uL Red Blood Count 4.07 4.0-5.20 10^6/uL Hemoglobin 11.0 L 12.2-16.2 g/dL Hematocrit 33.6 L 36.0-46.0 % Mean Corpuscular Volume 82.4 80.0-100.0 fL Mean Corpuscular Hemoglobin 26.9 L 28.0-32.0 pg Mean Corpuscular Hemoglobin Concent 32.7 32.0-36.0 g/dL Red Cell Distribution Width 15.1 H 11.8-14.3 % Platelet Count 207 140-450 10^3/uL Mean Platelet Volume 7.9 6.9-10.8 fL Neutrophils (%) (Auto) 83.8 H 37.0-80.0 % Lymphocytes (%) (Auto) 10.2 10.0-50.0 % Monocytes (%) (Auto) 4.4 0.0-12.0 % Eosinophils (%) (Auto) 1.4 0.0-7.0 % Basophils (%) (Auto) 0.2 0.0-2.0 % Neutrophils # (Auto) 6.9 1.6-8.6 10 ^3/uL Lymphocytes # (Auto) 0.8 0.4-5.4 10 ^3/uL Monocytes # (Auto) 0.4 0-1.3 10 ^3/uL Eosinophils # (Auto) 0.1 0-0.8 10 ^3/uL Basophils # (Auto) 0 0-0.2 10 ^3/uL Nucleated Red Blood Cells 0.0 % Sodium Level 141 136-145 mmol/L Potassium Level 4.1 3.5-5.1 mmol/L Chloride Level 105 98-107 mmol/L Carbon Dioxide Level 27 20-31 mmol/L Anion Gap 9 5-15 Blood Urea Nitrogen 24 H 9-23 mg/dL Creatinine 1.26 H 0.550-1.02 mg/dL Glomerular Filtration Rate Calc 44 >90 mL/min BUN/Creatinine Ratio 19.0 10.0-20.0 Serum Glucose 189 H 74-106 mg/dL Calcium Level 9.4 8.7-10.4 mg/dL SEPSIS Sepsis Screen Date sepsis recognized/suspect: Oct 12, 2025 Time Sepsis recognized/suspect: 1001 Recent Procedure: No On Antibiotic Therapy: No Respiratory Rate >20: No Heart Rate >90: No Temp<36 C (96.8 F) or >38.3 C: No SBP <90 or MAP <65 mmHG: No New Acute Mental Status Change: No Is the patient on CPAP, BIPAP,: No Physician Orders Electrocardigram (10/12/25 12:11) Chest Portable (10/12/25 09:27) Troponin-I Hs (10/12/25 12:27) Gabapentin Capsule (Neurontin Capsule) (10/12/25 14:00) Pravastatin Sodium Tablet (Pravachol Tab (10/13/25 10:00) (Nf) Levothyroxine Sodium (Synthroid) (10/13/25 10:00) (Nf) Losartan Potassium & Hydrochlo (Los (10/13/25 10:00) (Nf) Sertraline Hcl (10/13/25 10:00) Glucose Blood (Accu-Chek Comfort Curve T (10/12/25 11:30) Mild Sliding Scale (10/12/25 11:30) Dextrose 50% Syringe (10/12/25 11:30) Admit (10/12/25 11:22) Code Status (10/12/25 11:) Vital Signs .PER UNIT PROTOCOL (10/12/25 11:22) Planner Chief (10/12/25 11:) May Elevate Hob ____ Degrees (10/12/25 11:) Cardiac Diet-2gna,Lofat,Lochol (10/12/25 Lunch) Aspirin Chewable Tablet (10/13/25 10:00) Morphine Sulfate Injection (10/12/25 11:30) Acetaminophen Tablet (Tylenol Tablet) (10/12/25 11:30) Docusate Sodium Capsule (Colace Capsule) (10/13/25 10:00) Pulse Oximeter Check (10/12/25 11:22) Oxygen By Nasal Cannula (10/12/25 11:22) Complete Blood Count (10/13/25 04:00) Comprehensive Metabolic Panel (10/13/25 04:00) Echo 2d Mode Cardiac Dop (10/12/25 11:22) Nitroglycerin Sublingual (Ntrostat Subli (10/12/25 11:30) Magnesium (10/12/25 11:22) Troponin-I Hs (10/12/25 11:22) Cardiac Rehabilitation - Outpa (10/12/25 ) Nitroglycerin Sublingual (Ntrostat Subli (10/12/25 11:30) Morphine Sulfate Injection (10/12/25 11:30) Notify Of Changes From Base (10/12/25 11:22) [facility] For 24 Hours (10/12/25 11:22) Emergency Dysrhythmia Protocol (10/12/25 11:22) Rhythm Strips Once Every Shift (10/12/25 11:22) Oxygen By Nasal Cannula (10/12/25 11:22) Troponin-I Hs (10/12/25 12:22) Troponin-I Hs (10/12/25 14:22) Thyroid Stimulating Hormone (10/12/25 11:22) * Cardiology Consult (10/12/25 11:22) Vital Signs Date Time Temp Pulse Resp B/P (MAP) Pulse Ox O2 Delivery O2 Flow Rate FiO2 10/12/25 10:02 72 10/12/25 10:00 98.2 73 18 136/70 (92) 96 98.2 10/12/25 10:00 73 18 96 Room Air 10/12/25 09:17 98.1 77 16 156/74 99 98.1 10/12/25 09:07 78 Laboratory Tests Test 10/12/25 09:35 White Blood Count 8.3 10^3/uL (4.4-10.8) Medications Medications Dose Ordered Sig/Jose L Route Start Time Stop Time Status Last Admin Dose Admin Aspirin 324 mg ONCE ONCE PO 10/12/25 09:30 10/12/25 09:31 DC 10/12/25 09:43 324 MG Assessment/Plan Assessment/Plan 75-year-old female admitted for acute chest pain with radiation to left arm, requiring ACS rule-out, telemetry monitoring, and cardiology evaluation given multiple cardiovascular comorbidities. acute Chest pain rule out acute coronary syndrome Left-sided chest pain radiating to left arm Worse with movement and palpation (possible musculoskeletal component) Aspirin given Serial troponins Telemetry monitoring EKGs as indicated ordered cards consult fu results ordered nitro and morphine as needed Diabetes mellitus type 2 uncontrolled Glucose 189 Accuchecks ISS chronic problems History of stable angina Chronic heart failure (preserved EF) Last EF 5560% (2022) Hypertension Resume home antihypertensives Hyperlipidemia Continue statin therapy Diabetes mellitus Glucose 189 Accuchecks SSI as needed Chronic kidney disease Avoid nephrotoxins Monitor BMP Irregular heartbeat / atrial arrhythmia none noted Anxiety Reassurance Asthma Continue home inhalers GERD Continue PPI Gout No acute flare Thyroid disease status post thyroidectomy for cancer Continue thyroid hormone replacement Glaucoma Continue ophthalmic medications Arthritis Likely contributor to chest wall pain FEN / PPx Fluids: hl Electrolytes: Monitor BMP Nutrition: Cardiac/diabetic diet DVT Prophylaxis: SCDs or pharmacologic prophylaxis as appropriate GI Prophylaxis: Continue PPI Disposition Admit to telemetry for ACS rule-out with serial troponins, EKG monitoring, and cardiopulmonary observation. Continue cardiac risk management and evaluate for non-cardiac causes of chest pain if ACS ruled out. Plan discussed with: Patient My Orders Orders - WARREN ZIEGLER [facility] Procedure Category Date Status Time Gabapentin Capsule PHA 10/12/25 Transmitted (Neurontin Capsule) 14:00 Pravastatin Sodium PHA 10/13/25 Transmitted Tablet (Pravachol Tab 10:00 (Nf) Levothyroxine PHA 10/13/25 Transmitted Sodium (Synthroid) 10:00 (Nf) Losartan PHA 10/13/25 Transmitted Potassium & Hydrochlo 10:00 (Nf) Sertraline Hcl PHA 10/13/25 Transmitted 10:00 Glucose Blood PHA 10/12/25 Transmitted (Accu-Chek Comfort 11:30 Mild Sliding Scale PHA 10/12/25 Transmitted 11:30 Dextrose 50% Syringe PHA 10/12/25 Transmitted 11:30 Admit ADMIT 10/12/25 Transmitted 11:22 Code Status CODE 10/12/25 Verified 11:22 Vital Signs [facility] 10/12/25 Verified 11:22 Planner Chief [facility] 10/12/25 Verified 11:22 May Elevate Hob ____ [facility] 10/12/25 Verified Degrees 11:22 Cardiac DIET 10/12/25 Verified Diet-2gna,Lofat,Lochol Lunch Aspirin Chewable [facility] 10/13/25 Verified Tablet 10:00 Morphine Sulfate PHA 10/12/25 Verified Injection 11:30 Acetaminophen Tablet PHA 10/12/25 Verified (Tylenol Tablet) 11:30 Docusate Sodium [facility] 10/13/25 Verified Capsule (Colace 10:00 Pulse Oximeter Check RT 10/12/25 Verified 11:22 Oxygen By Nasal RT 10/12/25 Verified Cannula 11:22 Complete Blood Count LAB 10/13/25 Verified 04:00 Comprehensive LAB 10/13/25 Verified Metabolic Panel 04:00 Echo 2d Mode Cardiac US 10/12/25 Verified DOP 11:22 Nitroglycerin PHA 10/12/25 Verified Sublingual (Ntrostat 11:30 Magnesium LAB 10/12/25 Verified 11:22 Troponin-I Hs LAB 10/12/25 Verified 11:22 Cardiac RADHA 10/12/25 Verified Rehabilitation - Outpa Nitroglycerin PHA 10/12/25 Verified Sublingual (Ntrostat 11:30 Morphine Sulfate PHA 10/12/25 Verified Injection 11:30 Notify Md Of Changes [facility] 10/12/25 Verified From Base 11:22 [facility] For [facility] 10/12/25 Verified 24 Hours 11:22 Emergency Dysrhythmia [facility] 10/12/25 Verified Protocol 11:22 Rhythm Strips Once RADHA 10/12/25 Verified Every Shift 11:22 Oxygen By Nasal RT 10/12/25 Verified Cannula 11:22 Troponin-I Hs LAB 10/12/25 Verified 12:22 Troponin-I Hs LAB 10/12/25 Verified 14:22 Thyroid Stimulating LAB 10/12/25 Verified Hormone 11:22 * Cardiology Consult CONS 10/12/25 Verified 11:22 Date of Service: Oct 12, 2025 Billing Provider: WARREN ZIEGLER DNP Common Visit Codes: [id number] INP/OBS CARE (HIGH) WARREN ZIEGLER DNP Oct 12, 2025 11:29
[2025-10-12] MEDS ORDERED: NITROGLYCERIN 0.4 MG SL TAB SL PRN ×2 (11:30)
[2025-10-12] MEDS ORDERED: MORPHINE SULFATE INJ 2 MG/ml SYRG IV PRN (11:30)
[2025-10-12] MEDS ORDERED: DEXTROSE (50%) 50ML SYRG IV PRN (11:30)
[2025-10-12] MEDS ORDERED: MORPHINE SULFATE 4 MG/ML SYR/VIAL IV PRN (11:30)
[2025-10-12] MEDS: ACCU-CHEK COMFORT CURVE STRIP VI SCH (12:06)
[2025-10-12] MEDS: InsuLIN REG 1unit/0.01ml Soln (100units/ml) SC SCH (12:06)
[2025-10-12 13:44] VITALS: BP 131/65; PULSE 70; TEMP 97.9; O2SAT 96
[2025-10-12] MEDS: GABAPENTIN 300 MG CAP PO SCH (14:02)
[2025-10-12 15:36] VITALS: BP 131/65; PULSE 70; RESP 14; TEMP 97.9; O2SAT 96
[2025-10-12] MEDS ORDERED: AMLO1TAB21 PO (16:08)
[2025-10-12] MEDS ORDERED: DULO1CAP6 PO (16:09)
[2025-10-12] MEDS ORDERED: TOLT1CAP29 PO (16:09)
[2025-10-12] MEDS ORDERED: FAMO40TA7 PO (16:11)
[2025-10-12] MEDS ORDERED: MELO15TA29 PO (16:11)
[2025-10-12] MEDS ORDERED: HYDR-4072 PO (16:12)
[2025-10-12] MEDS ORDERED: CARV12.544 PO (16:14)
[2025-10-12] MEDS ORDERED: PREG25CA28 PO (16:17)
[2025-10-12 17:00] VITALS: BP 136/81; PULSE 69; RESP 17; TEMP 97; O2SAT 98
[2025-10-12] MEDS: PANTOPRAZOLE 40 MG/10 ML VIAL INJ IV ONE (18:00)
[2025-10-12 20:00] VITALS: PULSE 74; RESP 18
[2025-10-12 21:00] VITALS: BP 112/67; PULSE 70; RESP 14; TEMP 97.8; O2SAT 93
[2025-10-13] VITALS (8 sets, daily range): BP systolic 100–151; BP diastolic 57–82; PULSE 66–87; RESP 14–19; TEMP 98–100; O2SAT 92–96
[2025-10-13 07:07] LABS: Hemoglobin 11.5 g/dL (12.2-16.2); Mean Corpuscular Hemoglobin 26.9 pg (28.0-32.0)
[2025-10-13 07:08] LABS: Hematocrit 34.7 % (36.0-46.0); Mean Corpuscular Volume 81.4 fL (80.0-100.0); Nucleated Red Blood Cells % 0.0 %
[2025-10-13 07:33] LABS: Alanine Aminotransferase 16 U/L (7-40); Albumin 3.9 g/dL (3.2-4.8); Alkaline Phosphatase 101 U/L (46-116); Anion Gap 10 (5-15); BUN/Creatinine Ratio 19.5 (10.0-20.0); Calcium 9.7 mg/dL (8.7-10.4); Carbon Dioxide 29 mmol/L (20-31); Chloride 103 mmol/L (98-107); Glucose 81 mg/dL (74-106); Potassium 4.3 mmol/L (3.5-5.1); Sodium 142 mmol/L (136-145); Total Protein 6.7 g/dL (5.7-8.2)
[2025-10-13 07:34] LABS: Bilirubin, Total 0.4 mg/dL (0.2-1.0)
[2025-10-13 07:35] LABS: Blood Urea Nitrogen 24 mg/dL (9-23)
[2025-10-13] MEDS: LEVOTHYROXINE SODIUM 25 MCG TAB PO SCH (10:28)
[2025-10-13] MEDS: ACETAMINOPHEN 325 MG TAB PO PRN (10:28)
[2025-10-13] MEDS: PANTOPRAZOLE 40 MG/10 ML VIAL INJ IV SCH (10:28)
[2025-10-13] MEDS: DOCUSATE SOD 100 MG CAP PO SCH (10:29)
[2025-10-13] MEDS: PRAVASTATIN SODIUM 20 MG TAB PO SCH (10:29)
[2025-10-13] MEDS: SERTRALINE HCL 50 MG TAB PO SCH (10:30)
--- NOTE | 2025-10-13 12:13 | DVHINCON2 ---
Date Seen: Oct 13, 2025 Referring Physician ANNA Land Reason for Consultation Chest pain History of Present Illness This is a Amharic-speaking 75-year-old female patient who presents to emergency room with chief complaint of chest pain. The patient reports that symptoms began five days prior to emergency room arrival. She describes her chest pain as unprovoked, intermittent, pressure-like in nature, left sided with radiation towards her left shoulder and left arm. Associated symptoms include shortness of breath. Initial twelve lead electrocardiogram reveals normal sinus rhythm without any significant ST segment changes. Serial troponin levels have been negative. Significant past medical history includes hypertension, dyslipidemia, type 2 diabetes mellitus, thyroid cancer status post thyroidectomy, rheumatoid arthritis, chronic pain, glaucoma and morbid obesity. The patient does not follow up with a purchasing and fiscal clerk in the outpatient setting. Of note, the patient underwent a coronary angiogram with left heart catheterization at this facility on 05/26/2023 in which no significant coronary artery disease was found. Past Medical History Past medical history reviewed. No other significant than mentioned above. Past Surgical History Thyroidectomy Hysterectomy Bilateral breast lumpectomy Cholecystectomy Left knee replacement Family History: Cancer G8 MOTHER, Family history: Diabetes mellitus G8 FATHER, Family history: Hypertension G8 MOTHER, Family History Family history reviewed. Social History Denies the use of tobacco, alcohol or illicit drugs. Allergies: Coded Allergies: NO KNOWN ALLERGIES (Unverified , 04/09/15) Home Meds Active Scripts Levothyroxine Sodium (Synthroid) 125 Mcg Tab, 1 TAB PO DAILY, #30 TAB 5 Refills Prov:WILLIE MCGINNIS MD 05/18/23 Allopurinol (ZYLOPRIM TABLET) 300 Mg Tb, 300 MG PO DAILY, #30 TAB 3 Refills Prov:WILLIE MCGINNIS MD 05/18/23 Reported Medications Pregabalin (Pregabalin) 25 Mg Cap, 1 CAP PO BID 10/12/25 Carvedilol (Carvedilol) 12.5 Mg Tab, 1 TAB PO BID 10/12/25 Hydrocodone-Acetaminophen (Hydrocodone/Acetaminophen 10-325 mg) 1 Tab Tab, 1 TAB PO BID, TAB 10/12/25 Famotidine (Famotidine) 40 Mg Tab, 1 TAB PO DAILY 10/12/25 Meloxicam (Meloxicam) 15 Mg Tab, 1 TAB PO DAILY 10/12/25 Tolterodine Tartrate (Tolterodine Tartrate ER) 4 Mg Cap, 1 CAP PO DAILY 10/12/25 Duloxetine HCl (Duloxetine HCl) 60 Mg Cap, 1 CAP PO DAILY 10/12/25 Amlodipine Besylate (Amlodipine Besylate) 2.5 Mg Tab, 1 TAB PO DAILY 10/12/25 Metformin Hydrochloride (Metformin Hcl Er) 500 Mg Tab, 1 TAB PO BID 05/13/23 Sertraline Hcl (Sertraline Hcl) 100 Mg Tab, 1 TAB PO DAILY 05/13/23 Hydrocortisone Base (Hydrocortisone) 2.5 % Oin, TOP 05/13/23 Gabapentin (Gabapentin) 300 Mg Cap, 1 TAB PO TID 04/09/15 Pravastatin Sodium (PRAVACHOL TABLET) 20 Mg Tb, 10 MG PO DAILY 04/09/15 Losartan Potassium & Hydrochlo (Losartan Potassium/Hydroc) 1 Tab Tab, 1 TAB PO DAILY 04/09/15 Home Meds Home medications reviewed. Current Medications Current Medications Medications (Trade) Dose Ordered Sig/Jose L Route PRN Reason Start Time Stop Time Status Last Admin Gabapentin (Neurontin Capsule) 300 mg TID PO 10/12/25 14:00 10/13/25 06:37 Pravastatin Sodium (Pravachol Tablet) 10 mg DAILY PO 10/13/25 10:00 10/13/25 10:29 Levothyroxine Sodium (Synthroid Tablet) 125 mcg DAILY PO 10/13/25 10:00 10/13/25 10:28 Patient Own Medication 1 tab DAILY PO 10/13/25 10:00 Sertraline HCl (Zoloft) 100 mg DAILY PO 10/13/25 10:00 10/13/25 10:30 Aspirin 81 mg DAILY PO 10/13/25 10:00 10/13/25 10:29 Docusate Sodium (Colace Capsule) 100 mg DAILY PO 10/13/25 10:00 10/13/25 10:29 Pantoprazole Sodium (Protonix) 40 mg DAILY IV 10/13/25 10:00 10/13/25 10:28 Review of Systems Constitutional: No symptom reported Ears, Nose, & Throat: No symptom reported Eyes: No symptom reported Neurological: No symptoms reported Pulmonary/Respiratory: No symptoms reported Cardiovascular: Chest pain Gastrointestinal: No symptom reported Genitourinary: No symptom reported Musculoskeletal: No symptom reported Skin: No symptom reported Psychiatric: No symptom reported Endocrine: No symptom reported Hematologic/Lymphatic: No symptom reported Vital Signs Vital Signs Date Time Temp Pulse Resp B/P (MAP) Pulse Ox O2 Delivery O2 Flow Rate FiO2 10/13/25 08:40 98.1 87 17 151/82 (105) 95 98.1 10/12/25 20:00 Room Air* 0 21 Physical Exam General Appearance: Cooperative. Morbidly obese Pulmonary/Respiratory: Clear, bilateral breaths sounds. Cardiovascular/Chest: Regular rate and rhythm. Peripheral Pulses: 2+ Radial (R). 2+ Radial (L). 2+ Pedal (R). 2+ Pedal (L) Abdominal Exam: Normal bowel sounds. Ankle Exam: Negative ankle edema Lower extremities: Negative lower extremity edema Neuro/Mental Status: A/OX4, coherent. Thoughts/Psych: Normal thought pattern. Appropriate mood and affect. Good judgment and insight. Appearance: No acute distress. Skin Exam: Normal inspection. Normal color. Warm and dry. Labs/Diagnostic Data Labs Test 10/13/25 11:41 10/13/25 05:37 10/12/25 13:14 10/12/25 10:39 Range/Units POC Glucose 76 70-106 mg/dl White Blood Count 8.6 4.4-10.8 10^3/uL Red Blood Count 4.27 4.0-5.20 10^6/uL Hemoglobin 11.5 L 12.2-16.2 g/dL Hematocrit 34.7 L 36.0-46.0 % Mean Corpuscular Volume 81.4 80.0-100.0 fL Mean Corpuscular Hemoglobin 26.9 L 28.0-32.0 pg Mean Corpuscular Hemoglobin Concent 33.0 32.0-36.0 g/dL Red Cell Distribution Width 15.6 H 11.8-14.3 % Platelet Count 213 140-450 10^3/uL Mean Platelet Volume 7.9 6.9-10.8 fL Neutrophils (%) (Auto) 78.0 37.0-80.0 % Lymphocytes (%) (Auto) 11.9 10.0-50.0 % Monocytes (%) (Auto) 8.1 0.0-12.0 % Eosinophils (%) (Auto) 1.6 0.0-7.0 % Basophils (%) (Auto) 0.4 0.0-2.0 % Neutrophils # (Auto) 6.7 1.6-8.6 10 ^3/uL Lymphocytes # (Auto) 1.0 0.4-5.4 10 ^3/uL Monocytes # (Auto) 0.7 0-1.3 10 ^3/uL Eosinophils # (Auto) 0.1 0-0.8 10 ^3/uL Basophils # (Auto) 0 0-0.2 10 ^3/uL Nucleated Red Blood Cells 0.0 % Sodium Level 142 136-145 mmol/L Potassium Level 4.3 3.5-5.1 mmol/L Chloride Level 103 98-107 mmol/L Carbon Dioxide Level 29 20-31 mmol/L Anion Gap 10 5-15 Blood Urea Nitrogen 24 H 9-23 mg/dL Creatinine 1.23 H 0.550-1.02 mg/dL Glomerular Filtration Rate Calc 46 >90 mL/min BUN/Creatinine Ratio 19.5 10.0-20.0 Serum Glucose 81 74-106 mg/dL Calcium Level 9.7 8.7-10.4 mg/dL Total Bilirubin 0.4 0.2-1.0 mg/dL Aspartate Amino Transferase (AST) 13 13-40 U/L Alanine Aminotransferase (ALT) 16 7-40 U/L Alkaline Phosphatase 101 46-116 U/L Total Protein 6.7 5.7-8.2 g/dL Albumin 3.9 3.2-4.8 g/dL Troponin I High Sensitivity < 3 L </=34 ng/L Magnesium Level 1.6 1.6-2.6 mg/dL Test 10/12/25 09:35 Range/Units Thyroid Stimulating Hormone (TSH) 0.97 0.55-4.78 uIU/mL Assessment Chest pain, rule out coronary ischemia Rule out structural heart disease Hypertension Dyslipidemia History of thyroid cancer status post thyroidectomy Chronic pain Glaucoma Morbid obesity Plan/Recommendation We will continue with the following plan/recommendations (Dr. Coffman): * Transthoracic echocardiogram to evaluate cardiac function * Chest pain protocol * HEART score: 4 points * Single antiplatelet therapy and lipid-lowering agent * Blood pressure control * Nuclear stress test * Continuous telemetry monitoring; notify cardiology team immediately for any ECG changes Case discussed with . Given patient's clinical presentation and comorbidities, the patient was offered a nuclear stress test. The patient is agreeable to undergo procedure. The patient will be scheduled to undergo stress test at soonest availability. Thank you for allowing us to care for this patie nt. Please call with any questions or concerns. Critical care time spent: 44 minutes This medical document was created using an electronic medical record system with voice recognition software and computerized dictation system. Although this document has been carefully reviewed, there might still be some phonetic and typographical errors. Occasional wrong-word or ``sound-alike substitutions may have occurred due to the inherent limitations of voice recognition software. These areas are purely typographical due to imperfections of the software programs and do not reflect any compromise in the patient's medical care. Please read the chart carefully and recognize, using context, where these substitutions have occurred. Plan discussed with: Patient, Other (Bedside RN) NYHA Physical activity limitations: NA Date of Service: Oct 13, 2025 Billing Provider: RINA ASHLEY Cardiology Common Codes: 14214-FLYIMSI INP/OBS CARE (High) Cardiology Consultation Codes: 78998-[id number] CONSULT <45MIN RINA ASHLEY Oct 13, 2025 12:13
[2025-10-13 12:52] LABS: Triglycerides 158 mg/dL (< 150)
[2025-10-13 12:53] LABS: Cholesterol 146 mg/dL (< 200); HDL Cholesterol 50 mg/dL (40-59)
--- NOTE | 2025-10-13 13:06 | DVHPN2 ---
Subjective some sob Reviewed: H&P Changes from previous H/P or p: No Changes Eyes: No Pain, No Vision change, No Conjunctivae inflammation, No Eyelid inflammation, No Other, No Redness ENT: No Ear pain, No Ear discharge, No Nose pain, No Nose discharge, No Nose congestion, No Mouth pain, No Mouth swelling, No Throat pain, No Throat swelling, No Other Cardiovascular: Chest Pain; No Palpitations, No Orthopnea, No Paroxysmal Noc. Dyspnea, No Edema, No Lt Headedness, No Other Respiratory: No Cough, No Dry; Shortness of breath; No SOB with excertion, No Wheezing, No Hemoptysis, No Pleuritic Pain, No Sputum, No Other Gastrointestinal: No Nausea, No Vomiting, No Abdominal Pain, No Diarrhea, No Constipation, No Melena, No Hematochezia, No Other Genitourinary: No Dysuria, No Frequency, No Incontinence, No Hematuria, No Retention, No Other Musculoskeletal: No other, No neck pain, No shoulder pain, No arm pain, No back pain, No hand pain, No leg pain, No foot pain Skin: No Rash, No Lesions, No Jaundice, No Bruising, No Other Objective Vitals Vital Signs Date Time Temp Pulse Resp B/P (MAP) Pulse Ox O2 Delivery O2 Flow Rate FiO2 10/13/25 12:40 100.0 79 17 124/80 (95) 92 100.0 10/13/25 08:00 Room Air* 0 21 Intake/Output Intake and Output 10/13/25 07:00 Intake Total 300 ml Output Total 0 ml Balance 300 ml Intake Oral 300 ml Output Urine/Stool Mix 0 ml # Voids 5 General Appearance: Alert, Oriented X3 Cardiovascular: Regular rate, Normal S1, Normal S2 Abdomen: Normal bowel sounds Medications Current Medications Medications Dose Ordered Sig/Jose L Route Start Time Stop Time Status Last Admin Dose Admin Gabapentin 300 mg TID PO 10/12/25 14:00 10/13/25 06:37 300 MG Pravastatin Sodium 10 mg DAILY PO 10/13/25 10:00 10/13/25 10:29 10 MG Levothyroxine Sodium 125 mcg DAILY PO 10/13/25 10:00 10/13/25 10:28 125 MCG Patient Own Medication 1 tab DAILY PO 10/13/25 10:00 Sertraline HCl 100 mg DAILY PO 10/13/25 10:00 10/13/25 10:30 100 MG Diagnostic Test (Pha) 1 strip ACHS 10/12/25 11:30 10/13/25 11:45 1 STRIP Insulin Human Regular ACHS SC 10/12/25 11:30 10/12/25 21:10 3 UNITS Dextrose 50 ml UD PRN IV 10/12/25 11:30 Aspirin 81 mg DAILY PO 10/13/25 10:00 10/13/25 10:29 81 MG Acetaminophen 325 mg Q4HP PRN PO 10/12/25 11:30 10/13/25 10:28 325 MG Docusate Sodium 100 mg DAILY PO 10/13/25 10:00 10/13/25 10:29 100 MG Nitroglycerin 0.4 mg Q5MINP PRN SL 10/12/25 11:30 Morphine Sulfate 2 mg Q30M PRN IV 10/12/25 11:30 Pantoprazole Sodium 40 mg DAILY IV 10/13/25 10:00 10/13/25 10:28 40 MG Laboratory Results Laboratory Tests 10/13/25 05:37 Chemistry Test 10/13/25 05:37 Albumin 3.9 g/dL (3.2-4.8) Calcium Level 9.7 mg/dL (8.7-10.4) Total Protein 6.7 g/dL (5.7-8.2) Lipid panel Test 10/13/25 05:37 Cholesterol Level 146 mg/dL (< 200) HDL Cholesterol 50 mg/dL (40-59) Triglycerides Level 158 mg/dL (< 150) H LFT Test 10/13/25 05:37 Alanine Aminotransferase (ALT) 16 U/L (7-40) Alkaline Phosphatase 101 U/L (46-116) Aspartate Amino Transferase (AST) 13 U/L (13-40) Total Bilirubin 0.4 mg/dL (0.2-1.0) HgA1c, TSH Test 10/13/25 05:37 Hemoglobin A1c 6.2 % A1C (<5.7) H Assessment/Plan Assessment/Plan 75-year-old female admitted for acute chest pain with radiation to left arm, requiring ACS rule-out, telemetry monitoring, and cardiology evaluation given multiple cardiovascular comorbidities. acute Chest pain rule out acute coronary syndrome Troponins negative pending echo IV lasix cardiology on consult Diabetes mellitus type 2 uncontrolled Glucose 189 Accuchecks ISS chronic problems History of stable angina Chronic heart failure (preserved EF) Last EF 5560% (2022) Hypertension Resume home antihypertensives Hyperlipidemia Continue statin therapy Diabetes mellitus Glucose 189 Accuchecks SSI as needed Chronic kidney disease Avoid nephrotoxins Monitor BMP Irregular heartbeat / atrial arrhythmia none noted Anxiety Reassurance Asthma Continue home inhalers GERD Continue PPI Gout No acute flare Thyroid disease status post thyroidectomy for cancer Continue thyroid hormone replacement Glaucoma Continue ophthalmic medications Arthritis Likely contributor to chest wall pain FEN / PPx Fluids: hl Electrolytes: Monitor BMP Nutrition: Cardiac/diabetic diet DVT Prophylaxis: SCDs or pharmacologic prophylaxis as appropriate GI Prophylaxis: Continue PPI Plan discussed with: Patient Date of Service: Oct 13, 2025 Billing Provider: EULA FABIAN MD Common Visit Codes: [id number] INP/OBS CARE(HIGH) EULA FABIAN MD Oct 13, 2025 13:06
[2025-10-13] MEDS: FUROSEMIDE 40 MG/4 ML VIAL IV SCH (14:01)
--- NOTE | 2025-10-13 19:33 | DVHINCON2 ---
Date Seen: Oct 13, 2025 Referring Physician ANNA Land Reason for Consultation Chest pain History of Present Illness This is a Romansh-speaking 75-year-old female with a past medical history of hypertension, dyslipidemia, type 2 diabetes mellitus, thyroid cancer status post thyroidectomy, rheumatoid arthritis, chronic pain, glaucoma and morbid obesity who presents to emergency room with chief complaint of chest pain. The patient reports that symptoms began five days prior to emergency room arrival. She describes her chest pain as unprovoked, intermittent, pressure-like in nature, left sided with radiation towards her left shoulder and left arm. Associated symptoms include shortness of breath. Initial twelve lead electrocardiogram reveals normal sinus rhythm without any significant ST segment changes. Serial troponin levels have been negative. The patient does not follow up with a aligner typewriter in the outpatient setting. Of note, the patient underwent a coronary angiogram with left heart catheterization at this facility on 05/26/2023 in which no significant coronary artery disease was found. Chest x- ray showed NAD. Patient was admitted to the hospital. I am asked to consult on this patient. Past Medical History Past medical history reviewed. No other significant than mentioned above. Past Surgical History Thyroidectomy Hysterectomy Bilateral breast lumpectomy Cholecystectomy Left knee replacement Family History: Cancer G8 MOTHER, Family history: Diabetes mellitus G8 FATHER, Family history: Hypertension G8 MOTHER, Allergies: Coded Allergies: NO KNOWN ALLERGIES (Unverified , 04/09/15) Home Meds Active Scripts Levothyroxine Sodium (Synthroid) 125 Mcg Tab, 1 TAB PO DAILY, #30 TAB 5 Refills Prov:WILLIE MCGINNIS MD 05/18/23 Allopurinol (ZYLOPRIM TABLET) 300 Mg Tb, 300 MG PO DAILY, #30 TAB 3 Refills Prov:WILLIE MCGINNIS MD 05/18/23 Reported Medications Pregabalin (Pregabalin) 25 Mg Cap, 1 CAP PO BID 10/12/25 Carvedilol (Carvedilol) 12.5 Mg Tab, 1 TAB PO BID 10/12/25 Hydrocodone-Acetaminophen (Hydrocodone/Acetaminophen 10-325 mg) 1 Tab Tab, 1 TAB PO BID, TAB 10/12/25 Famotidine (Famotidine) 40 Mg Tab, 1 TAB PO DAILY 10/12/25 Meloxicam (Meloxicam) 15 Mg Tab, 1 TAB PO DAILY 10/12/25 Tolterodine Tartrate (Tolterodine Tartrate ER) 4 Mg Cap, 1 CAP PO DAILY 10/12/25 Duloxetine HCl (Duloxetine HCl) 60 Mg Cap, 1 CAP PO DAILY 10/12/25 Amlodipine Besylate (Amlodipine Besylate) 2.5 Mg Tab, 1 TAB PO DAILY 10/12/25 Metformin Hydrochloride (Metformin Hcl Er) 500 Mg Tab, 1 TAB PO BID 05/13/23 Sertraline Hcl (Sertraline Hcl) 100 Mg Tab, 1 TAB PO DAILY 05/13/23 Hydrocortisone Base (Hydrocortisone) 2.5 % Oin, TOP 05/13/23 Gabapentin (Gabapentin) 300 Mg Cap, 1 TAB PO TID 04/09/15 Pravastatin Sodium (PRAVACHOL TABLET) 20 Mg Tb, 10 MG PO DAILY 04/09/15 Losartan Potassium & Hydrochlo (Losartan Potassium/Hydroc) 1 Tab Tab, 1 TAB PO DAILY 04/09/15 Current Medications Current Medications Medications (Trade) Dose Ordered Sig/Jose L Route PRN Reason Start Time Stop Time Status Last Admin Pravastatin Sodium (Pravachol Tablet) 10 mg DAILY PO 10/13/25 10:00 10/13/25 10:29 Levothyroxine Sodium (Synthroid Tablet) 125 mcg DAILY PO 10/13/25 10:00 10/13/25 10:28 Patient Own Medication 1 tab DAILY PO 10/13/25 10:00 Sertraline HCl (Zoloft) 100 mg DAILY PO 10/13/25 10:00 10/13/25 10:30 Aspirin 81 mg DAILY PO 10/13/25 10:00 10/13/25 10:29 Docusate Sodium (Colace Capsule) 100 mg DAILY PO 10/13/25 10:00 10/13/25 10:29 Pantoprazole Sodium (Protonix) 40 mg DAILY IV 10/13/25 10:00 10/13/25 10:28 Furosemide (Lasix Injection) 40 mg DAILY IV 10/13/25 13:15 10/13/25 14:01 Review of Systems Constitutional: No symptom reported Ears, Nose, & Throat: No symptom reported Eyes: No symptom reported Neurological: No symptoms reported Pulmonary/Respiratory: No symptoms reported Cardiovascular: Chest pain Gastrointestinal: No symptom reported Genitourinary: No symptom reported Musculoskeletal: No symptom reported Skin: No symptom reported Psychiatric: No symptom reported Endocrine: No symptom reported Hematologic/Lymphatic: No symptom reported Vital Signs Vital Signs Date Time Temp Pulse Resp B/P (MAP) Pulse Ox O2 Delivery O2 Flow Rate FiO2 10/13/25 14:01 111/72 10/13/25 12:40 100.0 79 17 92 100.0 10/13/25 08:00 Room Air* 0 21 Physical Exam GENERAL: Alert and oriented x 3. No acute distress. Morbidly obese. EYES: PERRL, EOMI. Anicteric. HENT: Moist mucous membranes. LUNGS: Clear to auscultation bilaterally. CARDIOVASCULAR: Regular rate and rhythm. ABDOMEN: Soft, nontender and nondistended. EXTREMITIES: No edema. NEUROLOGIC: No focal neurological deficits. SKIN: Warm, dry. Labs/Diagnostic Data Labs Test 10/13/25 11:41 10/13/25 05:37 10/12/25 13:14 10/12/25 10:39 Range/Units POC Glucose 76 70-106 mg/dl White Blood Count 8.6 4.4-10.8 10^3/uL Red Blood Count 4.27 4.0-5.20 10^6/uL Hemoglobin 11.5 L 12.2-16.2 g/dL Hematocrit 34.7 L 36.0-46.0 % Mean Corpuscular Volume 81.4 80.0-100.0 fL Mean Corpuscular Hemoglobin 26.9 L 28.0-32.0 pg Mean Corpuscular Hemoglobin Concent 33.0 32.0-36.0 g/dL Red Cell Distribution Width 15.6 H 11.8-14.3 % Platelet Count 213 140-450 10^3/uL Mean Platelet Volume 7.9 6.9-10.8 fL Neutrophils (%) (Auto) 78.0 37.0-80.0 % Lymphocytes (%) (Auto) 11.9 10.0-50.0 % Monocytes (%) (Auto) 8.1 0.0-12.0 % Eosinophils (%) (Auto) 1.6 0.0-7.0 % Basophils (%) (Auto) 0.4 0.0-2.0 % Neutrophils # (Auto) 6.7 1.6-8.6 10 ^3/uL Lymphocytes # (Auto) 1.0 0.4-5.4 10 ^3/uL Monocytes # (Auto) 0.7 0-1.3 10 ^3/uL Eosinophils # (Auto) 0.1 0-0.8 10 ^3/uL Basophils # (Auto) 0 0-0.2 10 ^3/uL Nucleated Red Blood Cells 0.0 % Sodium Level 142 136-145 mmol/L Potassium Level 4.3 3.5-5.1 mmol/L Chloride Level 103 98-107 mmol/L Carbon Dioxide Level 29 20-31 mmol/L Anion Gap 10 5-15 Blood Urea Nitrogen 24 H 9-23 mg/dL Creatinine 1.23 H 0.550-1.02 mg/dL Glomerular Filtration Rate Calc 46 >90 mL/min BUN/Creatinine Ratio 19.5 10.0-20.0 Serum Glucose 81 74-106 mg/dL Hemoglobin A1c 6.2 H <5.7 % A1C Calcium Level 9.7 8.7-10.4 mg/dL Total Bilirubin 0.4 0.2-1.0 mg/dL Aspartate Amino Transferase (AST) 13 13-40 U/L Alanine Aminotransferase (ALT) 16 7-40 U/L Alkaline Phosphatase 101 46-116 U/L B-Type Natriuretic Peptide 107.85 0-100 pg/mL Total Protein 6.7 5.7-8.2 g/dL Albumin 3.9 3.2-4.8 g/dL Triglycerides Level 158 H < 150 mg/dL Cholesterol Level 146 < 200 mg/dL LDL Cholesterol 73 < 100 mg/dL HDL Cholesterol 50 40-59 mg/dL Troponin I High Sensitivity < 3 L </=34 ng/L Magnesium Level 1.6 1.6-2.6 mg/dL Test 10/12/25 09:35 Range/Units Thyroid Stimulating Hormone (TSH) 0.97 0.55-4.78 uIU/mL Assessment Chest pain, rule out coronary ischemia. Rule out structural heart disease. Hypertension. Dyslipidemia. History of thyroid cancer status post thyroidectomy. Chronic pain. Glaucoma. Morbid obesity. Plan/Recommendation I agree with your ongoing assessment and care of plan. Patient has been seen by Zaida Romero NP on my behalf, her and I discussed the plan with the patient. Transthoracic echocardiogram to evaluate cardiac function. Chest pain protocol. HEART score: 4 points. Single antiplatelet therapy and lipid-lowering agent. Blood pressure control. Nuclear stress test. Continuous telemetry monitoring; notify cardiology team immediately for any ECG changes. Given patient's clinical presentation and comorbidities, the patient was offered a nuclear stress test. The patient is agreeable to undergo procedure. The patient will be scheduled to undergo stress test at soonest availability. Additional plan as per the hospital course. Plan discussed with: Patient NYHA Physical activity limitations: NA Date of Service: Oct 13, 2025 Billing Provider: RYAN PASCUAL MD Cardiology Common Codes: [id number] INP/OBS CARE (High) Cardiology Consultation Codes: [id number] CONSULT <45MIN RYAN PASCUAL MD Oct 13, 2025 14:26
[2025-10-14] VITALS (8 sets, daily range): BP systolic 109–124; BP diastolic 54–72; PULSE 58–83; RESP 17–18; TEMP 97.8–99.7; O2SAT 90–96
--- NOTE | 2025-10-14 00:54 | DVHSR ---
APPROVED REPORT EXAM: Two-dimensional and M-mode echocardiogram with Doppler and color Doppler. Blood Pressure: 100/71 mmHg INDICATION Chest Pain RISK FACTORS Obesity: Height: 5'4", Weight: 197 DIMENSIONS LVDd 3.5 (3.8-5.7cm) LA (2D) 4.1 (1.9-4.0cm) Aortic Root 3.4 (2.0-3.7cm) LVDs 2.5 (2.5-4.0cm) LA (MM) (1.9-4.0cm) Aortic Cusp Exc 0.6 (1.5-2.0cm) EF (%) 55.0 (55-70%) Rt. Atrium 3.4 (1.9-4.0cm) Asc. Aorta cm IVSd 1.1 (0.7-1.1cm) RV (D) 3.3 (1.8-2.4cm) PWd 1.3 (0.7-1.1cm) Mitral Valve Mitral Mitral Stenosis E wave 0.46m/s MV Mean GR. mmHg A wave 0.89m/s MV Peak GR. mmHg E/A ratio 0.5 2D MVA cm2 DECEL Time 629ms PRESS 1/2 Time ms Aortic Valve Aortic Valve Aortic Stenosis V1 1.26m/s AO Mean GR. 26mmHg V2 3.45m/s AO Peak GR. 48mmHg LVOT Diameter 2.0 (1.8-2.4cm) Doppler ANDRES 1.15cm2 AI P 1/2 Time 419.37ms Pulmonic Valve V2 1.16m/s Other Information Technically limited study due to body habitus. Conclusion MILD LVH AND MILD LV DIASTOLIC DYSFUNCTION LV EF IS 65% SLIGHTLY DILATED LA VERY HEAVILY CALCIFIED AORTIC LEAFLETS PEAK GRADIENT ACROSS AORTIC VALVE IS 48 MM OF HG AND MEAN GRADIENT IS 26 MM OF HG MODERATE DEGREE AORTIC REGURGITATION AORTIC VALVE AREA IS IN RANGE OF 1.1 CM SQUARE IT S CRITICAL AORTIC STENOSIS NO EFFUSION
[2025-10-14 06:21] LABS: Chloride 102 mmol/L (98-107); Potassium 3.9 mmol/L (3.5-5.1); Sodium 140 mmol/L (136-145)
[2025-10-14 06:22] LABS: Calcium 9.3 mg/dL (8.7-10.4)
[2025-10-14 06:23] LABS: Anion Gap 10 (5-15); Carbon Dioxide 28 mmol/L (20-31)
[2025-10-14 06:28] LABS: BUN/Creatinine Ratio 19.0 (10.0-20.0); Blood Urea Nitrogen 24 mg/dL (9-23); Glucose 120 mg/dL (74-106)
--- NOTE | 2025-10-14 15:58 | DVHPN2 ---
Subjective some sob Reviewed: H&P Changes from previous H/P or p: No Changes Eyes: No Pain, No Vision change, No Conjunctivae inflammation, No Eyelid inflammation, No Other, No Redness ENT: No Ear pain, No Ear discharge, No Nose pain, No Nose discharge, No Nose congestion, No Mouth pain, No Mouth swelling, No Throat pain, No Throat swelling, No Other Cardiovascular: Chest Pain; No Palpitations, No Orthopnea, No Paroxysmal Noc. Dyspnea, No Edema, No Lt Headedness, No Other Respiratory: No Cough, No Dry; Shortness of breath; No SOB with excertion, No Wheezing, No Hemoptysis, No Pleuritic Pain, No Sputum, No Other Gastrointestinal: No Nausea, No Vomiting, No Abdominal Pain, No Diarrhea, No Constipation, No Melena, No Hematochezia, No Other Genitourinary: No Dysuria, No Frequency, No Incontinence, No Hematuria, No Retention, No Other Musculoskeletal: No other, No neck pain, No shoulder pain, No arm pain, No back pain, No hand pain, No leg pain, No foot pain Skin: No Rash, No Lesions, No Jaundice, No Bruising, No Other Objective Vitals Vital Signs Date Time Temp Pulse Resp B/P (MAP) Pulse Ox O2 Delivery O2 Flow Rate FiO2 10/14/25 13:00 97.9 76 17 113/62 (79) 94 97.9 10/14/25 08:00 Room Air* 0 21 Intake/Output Intake and Output 10/14/25 05:00 Intake Total 1100 ml Balance 1100 ml Intake Oral 1100 ml # Voids 9 General Appearance: Alert, Oriented X3 Cardiovascular: Regular rate, Normal S1, Normal S2 Abdomen: Normal bowel sounds Medications Current Medications Medications Dose Ordered Sig/Jose L Route Start Time Stop Time Status Last Admin Dose Admin Gabapentin 300 mg TID PO 10/12/25 14:00 10/14/25 15:33 300 MG Pravastatin Sodium 10 mg DAILY PO 10/13/25 10:00 10/14/25 09:09 10 MG Levothyroxine Sodium 125 mcg DAILY PO 10/13/25 10:00 10/14/25 09:07 125 MCG Patient Own Medication 1 tab DAILY PO 10/13/25 10:00 Sertraline HCl 100 mg DAILY PO 10/13/25 10:00 10/14/25 09:09 100 MG Diagnostic Test (Pha) 1 strip ACHS 10/12/25 11:30 10/14/25 11:58 1 STRIP Insulin Human Regular ACHS SC 10/12/25 11:30 10/13/25 22:03 3 UNITS Dextrose 50 ml UD PRN IV 10/12/25 11:30 Aspirin 81 mg DAILY PO 10/13/25 10:00 10/14/25 09:10 81 MG Acetaminophen 325 mg Q4HP PRN PO 10/12/25 11:30 10/14/25 15:34 325 MG Docusate Sodium 100 mg DAILY PO 10/13/25 10:00 10/14/25 09:10 100 MG Nitroglycerin 0.4 mg Q5MINP PRN SL 10/12/25 11:30 Morphine Sulfate 2 mg Q30M PRN IV 10/12/25 11:30 Pantoprazole Sodium 40 mg DAILY IV 10/13/25 10:00 10/14/25 09:05 40 MG Furosemide 40 mg DAILY IV 10/13/25 13:15 10/14/25 09:15 40 MG Laboratory Results Laboratory Tests 10/13/25 05:37 10/14/25 05:54 Chemistry Test 10/14/25 05:54 Calcium Level 9.3 mg/dL (8.7-10.4) Assessment/Plan Assessment/Plan 75-year-old female admitted for acute chest pain with radiation to left arm, requiring ACS rule-out, telemetry monitoring, and cardiology evaluation given multiple cardiovascular comorbidities. acute Chest pain rule out acute coronary syndrome Acute diastolic HF exacerbation Troponins negative IV lasix cardiology on consult>recs for stress test Diabetes mellitus type 2 uncontrolled Glucose 189 Accuchecks ISS chronic problems History of stable angina Chronic heart failure (preserved EF) Last EF 5560% (2022) Hypertension Resume home antihypertensives Hyperlipidemia Continue statin therapy Diabetes mellitus Glucose 189 Accuchecks SSI as needed Chronic kidney disease Avoid nephrotoxins Monitor BMP Irregular heartbeat / atrial arrhythmia none noted Anxiety Reassurance Asthma Continue home inhalers GERD Continue PPI Gout No acute flare Thyroid disease status post thyroidectomy for cancer Continue thyroid hormone replacement Glaucoma Continue ophthalmic medications Arthritis Likely contributor to chest wall pain FEN / PPx Fluids: hl Electrolytes: Monitor BMP Nutrition: Cardiac/diabetic diet DVT Prophylaxis: SCDs or pharmacologic prophylaxis as appropriate GI Prophylaxis: Continue PPI Plan discussed with: Patient Date of Service: Oct 14, 2025 Billing Provider: CAREN,EULA J MD Common Visit Codes: [id number] INP/OBS CARE(HIGH) EULA FABIAN MD Oct 14, 2025 15:58
--- NOTE | 2025-10-14 18:06 | DVHPN2 ---
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 No chest pain at time of assessment Objective vital signs Vital Sign Date Time Temp Pulse Resp B/P (MAP) Pulse Ox O2 Delivery O2 Flow Rate FiO2 10/14/25 17:00 97.9 77 18 109/54 (72) 94 97.9 10/14/25 08:00 Room Air* 0 21 Total Intake and Output 10/13/25 10/13/25 10/14/25 15:00 23:00 07:00 Intake Total 900 ml 200 ml Balance 900 ml 200 ml medications Current Medications Medications Dose Ordered Sig/Jose L Route Start Time Stop Time Status Last Admin Dose Admin Gabapentin 300 mg TID PO 10/12/25 14:00 10/14/25 15:33 300 MG Pravastatin Sodium 10 mg DAILY PO 10/13/25 10:00 10/14/25 09:09 10 MG Levothyroxine Sodium 125 mcg DAILY PO 10/13/25 10:00 10/14/25 09:07 125 MCG Patient Own Medication 1 tab DAILY PO 10/13/25 10:00 Sertraline HCl 100 mg DAILY PO 10/13/25 10:00 10/14/25 09:09 100 MG Diagnostic Test (Pha) 1 strip ACHS 10/12/25 11:30 10/14/25 11:58 1 STRIP Insulin Human Regular ACHS SC 10/12/25 11:30 10/13/25 22:03 3 UNITS Dextrose 50 ml UD PRN IV 10/12/25 11:30 Aspirin 81 mg DAILY PO 10/13/25 10:00 10/14/25 09:10 81 MG Acetaminophen 325 mg Q4HP PRN PO 10/12/25 11:30 10/14/25 15:34 325 MG Docusate Sodium 100 mg DAILY PO 10/13/25 10:00 10/14/25 09:10 100 MG Nitroglycerin 0.4 mg Q5MINP PRN SL 10/12/25 11:30 Morphine Sulfate 2 mg Q30M PRN IV 10/12/25 11:30 Pantoprazole Sodium 40 mg DAILY IV 10/13/25 10:00 10/14/25 09:05 40 MG Furosemide 40 mg DAILY IV 10/13/25 13:15 10/14/25 09:15 40 MG Examination: GENERAL:Normal, LUNGS:Normal, CVS:Normal, NEURO:Normal laboratory and microbiology Laboratory Tests 10/14/25 05:54 10/13/25 05:37 Test 10/14/25 05:54 Range/Units Serum Glucose 120 H 74-106 mg/dL Problem List/Assessment/Plan Problem List/Assessment/Plan Chest pain, rule out coronary artery disease Critical aortic valve stenosis Hypertension Dyslipidemia History of thyroid cancer status post thyroidectomy Chronic pain Glaucoma Morbid obesity Plan/Recommendations (Dr. Coffman): * Transthoracic echocardiogram reveals EF of 65%, aortic valve area 1.1 cm2, peak gradient 48 mmHg, mean gradient 26 mmHg * Chest pain protocol * HEART score: 4 points * Single antiplatelet therapy and lipid-lowering agent * Blood pressure control * Coronary angiogram * Continuous telemetry monitoring; notify cardiology team immediately for any ECG changes Patient was seen and examined at bedside with . Echocardiogram findings were discussed with the patient and her daughter. Transthoracic echocardiogram found critical aortic valve stenosis. The patient was offered a coronary angiogram to evaluate aortic valve as well as evaluate coronary arteries.The procedure was discussed with the patient in full detail including risks and benefits. Risks include but are not limited to bleeding, contrast-induced nephropathy, coronary dissection, stroke, and even . The patient understands and is agreeable to undergo the procedure. We will schedule the patient to undergo a coronary angiogram on 10/15/2025. Thank you for allowing us to care for this patient. Please call with any questions or concerns. This medical document was created using an electronic medical record system with voice recognition software and computerized dictation system. Although this document has been carefully reviewed, there might still be some phonetic and typographical errors. Occasional wrong-word or ``sound-alike substitutions may have occurred due to the inherent limitations of voice recognition software. These areas are purely typographical due to imperfections of the software programs and do not reflect any compromise in the patient's medical care. Please read the chart carefully and recognize, using context, where these substitutions have occurred. Plan discussed with: Patient, Daughter, Other (Bedside RN) Date of Service: Oct 14, 2025 Billing Provider: RINA ASHLEY Common Visit Codes: [id number] INP/OBS CARE(HIGH) RINA ASHLEY Oct 14, 2025 18:06
--- NOTE | 2025-10-14 19:09 | DVHPN2 ---
Consult Progress Note Subjective Other Systems: Patient was seen and evaluated in follow-up. Patient in normal sinus rhythm on cardiac cath rn. No chest pain at time of assessment. 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 Telemetry reviewed. Objective vital signs Vital Sign Date Time Temp Pulse Resp B/P (MAP) Pulse Ox O2 Delivery O2 Flow Rate FiO2 10/14/25 17:00 97.9 77 18 109/54 (72) 94 97.9 10/14/25 08:00 Room Air* 0 21 Total Intake and Output 10/13/25 10/13/25 10/14/25 15:00 23:00 07:00 Intake Total 900 ml 200 ml Balance 900 ml 200 ml medications Current Medications Medications Dose Ordered Sig/Jose L Route Start Time Stop Time Status Last Admin Dose Admin Gabapentin 300 mg TID PO 10/12/25 14:00 10/14/25 15:33 300 MG Pravastatin Sodium 10 mg DAILY PO 10/13/25 10:00 10/14/25 09:09 10 MG Levothyroxine Sodium 125 mcg DAILY PO 10/13/25 10:00 10/14/25 09:07 125 MCG Patient Own Medication 1 tab DAILY PO 10/13/25 10:00 Sertraline HCl 100 mg DAILY PO 10/13/25 10:00 10/14/25 09:09 100 MG Diagnostic Test (Pha) 1 strip ACHS 10/12/25 11:30 10/14/25 17:00 1 STRIP Insulin Human Regular ACHS SC 10/12/25 11:30 10/14/25 17:00 3 UNITS Dextrose 50 ml UD PRN IV 10/12/25 11:30 Aspirin 81 mg DAILY PO 10/13/25 10:00 10/14/25 09:10 81 MG Acetaminophen 325 mg Q4HP PRN PO 10/12/25 11:30 10/14/25 15:34 325 MG Docusate Sodium 100 mg DAILY PO 10/13/25 10:00 10/14/25 09:10 100 MG Nitroglycerin 0.4 mg Q5MINP PRN SL 10/12/25 11:30 Morphine Sulfate 2 mg Q30M PRN IV 10/12/25 11:30 Pantoprazole Sodium 40 mg DAILY IV 10/13/25 10:00 10/14/25 09:05 40 MG Furosemide 40 mg DAILY IV 10/13/25 13:15 10/14/25 09:15 40 MG Examination: GENERAL:Normal, LUNGS:Normal, CVS:Normal, NEURO:Normal laboratory and microbiology Laboratory Tests 10/14/25 05:54 10/13/25 05:37 Test 10/14/25 05:54 Range/Units Serum Glucose 120 H 74-106 mg/dL Problem List/Assessment/Plan Problem List/Assessment/Plan Problem List Chest pain, rule out coronary ischemia. Rule out structural heart disease. Hypertension. Dyslipidemia. History of thyroid cancer status post thyroidectomy. Chronic pain. Glaucoma. Morbid obesity. Plan/Recommendation Continued all current supportive medical care. Patient has been seen by Zaida Romero NP on my behalf, her and I discussed the plan with the patient. Transthoracic echocardiogram reveals EF of 65%, aortic valve area 1.1 cm2, peak gradient 48 mmHg, mean gradient 26 mmHg. Chest pain protocol. HEART score: 4 points. Single antiplatelet therapy and lipid-lowering agent. Blood pressure control. Coronary angiogram. Continuous telemetry monitoring; notify cardiology team immediately for any ECG changes. Echocardiogram findings were discussed with the patient and her daughter. Transthoracic echocardiogram found critical aortic valve stenosis. The patient was offered a coronary angiogram to evaluate aortic valve as well as evaluate coronary arteries. The procedure was discussed with the patient in full detail including risks and benefits. Risks include but are not limited to bleeding, contrast-induced nephropathy, coronary dissection, stroke, and even . The patient understands and is agreeable to undergo the procedure. We will schedule the patient to undergo a coronary angiogram on 10/15/2025. Additional plan as per the hospital course. Plan discussed with: Patient Date of Service: Oct 14, 2025 Billing Provider: RYAN PASCUAL MD Cardiology Common Codes: [id number] [facility] RYAN PASCUAL MD Oct 14, 2025 18:19
--- NOTE | 2025-10-14 23:32 | ECG ---
[facility] Heart Test Date: 2025-10-12 Test Time: 12:04:50 Pat Name: NEO SWENSON Department: Room: 0220T B Gender: F Head Counselor: TABATHA : 1950 Requested By: ZEB WINSLOW Order Number: [id number] Reading MD: Flaco Vang Measurements Intervals Bath Rate: 67 P: 12 AR: 190 QRS: 49 QRSD: 95 T: 7 QT: 399 QTc: 422 Interpretive Statements Sinus rhythm Low voltage, precordial leads Electronically Signed On 10-18-2025 8:28:04 PST by Flaco Vang Please click the below link to view image of tracing.
[2025-10-15] VITALS (12 sets, daily range): BP systolic 106–141; BP diastolic 64–77; PULSE 72–88; RESP 13–17; TEMP 97.8–98.2; O2SAT 90–99
[2025-10-15] MEDS: LEVOTHYROXINE SODIUM 25 MCG TAB PO SCH (05:57)
[2025-10-15 06:59] LABS: Hematocrit 32.0 % (36.0-46.0); Hemoglobin 11.0 g/dL (12.2-16.2); Mean Corpuscular Hemoglobin 27.9 pg (28.0-32.0); Mean Corpuscular Volume 81.6 fL (80.0-100.0); Nucleated Red Blood Cells % 0.1 %
[2025-10-15 07:02] LABS: INR 0.95 (0.9-1.15); Partial Thromboplastin Time 34.2 SEC (24.5-34.5); Prothrombin Time 10.1 sec (9.3-11.8)
[2025-10-15 07:05] LABS: Anion Gap 10 (5-15); Calcium 8.8 mg/dL (8.7-10.4); Carbon Dioxide 28 mmol/L (20-31); Chloride 104 mmol/L (98-107); Potassium 4.0 mmol/L (3.5-5.1); Sodium 142 mmol/L (136-145)
[2025-10-15 07:11] LABS: BUN/Creatinine Ratio 24.6 (10.0-20.0)
[2025-10-15 07:21] LABS: Blood Urea Nitrogen 34 mg/dL (9-23); Glucose 130 mg/dL (74-106)
[2025-10-15] MEDS: IODIXANOL 320MG/ML 100ML BTL IV ONE (11:36)
[2025-10-15] MEDS: MIDAZOLAM HCL 2MG/2ML 2ml VIAL (1mg/ml) ONE (11:49)
[2025-10-15] MEDS: fentaNYL CITRATE 100 MCG/2 ML VL ONE (11:49)
[2025-10-15] MEDS: VERAPAMIL 2.5MG/ML INJ 2ML VIAL IV ONE (11:49)
[2025-10-15] MEDS: HEPARIN SODIUM (PORCINE) 5000 UNITS/ML 1ML VIAL ONE (11:49)
[2025-10-15] MEDS: ANGIOMAX 250 MG VIAL IV ONE (11:49)
[2025-10-15] MEDS: LIDOCAINE 2%HCL (LOCAL ANESTH.) INJ 20ML MDV ONE (11:50)
[2025-10-15] MEDS: SODIUM CHL 0.9% 0 ML ONE (11:50)
--- NOTE | 2025-10-15 12:39 | DVHPN2 ---
Progress Note Date Seen: Oct 15, 2025 Medical Necessity Reason Pt with a Central, PICC or Fol: No Subjective Patient reports: Feels better Objective vital signs Vital Sign Date Time Temp Pulse Resp B/P (MAP) Pulse Ox O2 Delivery O2 Flow Rate FiO2 10/15/25 09:21 141/77 10/15/25 08:50 98.0 75 16 96 98.0 10/14/25 20:00 Room Air* 0 21 Total Intake and Output 10/14/25 10/14/25 10/15/25 15:00 23:00 07:00 Intake Total 1975 ml 800 ml Balance 1975 ml 800 ml medications Current Medications Medications Dose Ordered Sig/Jose L Route Start Time Stop Time Status Last Admin Dose Admin Gabapentin 300 mg TID PO 10/12/25 14:00 10/15/25 05:55 300 MG Pravastatin Sodium 10 mg DAILY PO 10/13/25 10:00 10/15/25 09:23 10 MG Patient Own Medication 1 tab DAILY PO 10/13/25 10:00 Sertraline HCl 100 mg DAILY PO 10/13/25 10:00 10/14/25 09:09 100 MG Diagnostic Test (Pha) 1 strip ACHS 10/12/25 11:30 10/15/25 05:59 1 STRIP Insulin Human Regular ACHS SC 10/12/25 11:30 10/14/25 21:39 3 UNITS Dextrose 50 ml UD PRN IV 10/12/25 11:30 Aspirin 81 mg DAILY PO 10/13/25 10:00 10/15/25 09:24 81 MG Acetaminophen 325 mg Q4HP PRN PO 10/12/25 11:30 10/14/25 21:40 325 MG Docusate Sodium 100 mg DAILY PO 10/13/25 10:00 10/15/25 09:23 100 MG Nitroglycerin 0.4 mg Q5MINP PRN SL 10/12/25 11:30 Morphine Sulfate 2 mg Q30M PRN IV 10/12/25 11:30 Pantoprazole Sodium 40 mg DAILY IV 10/13/25 10:00 10/15/25 09:19 40 MG Furosemide 40 mg DAILY IV 10/13/25 13:15 10/15/25 09:21 40 MG Levothyroxine Sodium 125 mcg DAILY@0630 PO 10/15/25 06:30 10/15/25 05:57 125 MCG Examination: GENERAL:Abnormal, HEENT:Abnormal, LUNGS:Abnormal, CVS:Abnormal, ABDOMEN:Abnormal laboratory and microbiology Laboratory Tests 10/15/25 05:12 Test 10/15/25 05:12 Range/Units Serum Glucose 130 H 74-106 mg/dL Problem List/Assessment/Plan Problem List/Assessment/Plan aortic stenosis htn hl obesity s/p cath, no sig c ad fu dr long light plan for Aortic stenosis asa statin Plan discussed with: Patient My Orders My Orders Orders - ROXANNE MAGDALENO MD Procedure Category Date Status Time Cl Left Heart Cath CL 10/15/25 Taken 08:11 Date of Service: Oct 15, 2025 Billing Provider: ROXANNE MAGDALENO MD Common Visit Codes: NOT BILLABLE ROXANNE MAGDALENO MD Oct 15, 2025 12:39
--- NOTE | 2025-10-15 12:43 | DVHOP2 ---
Operative Report Operative Report CARDIAC CLAY DIGGER PROCEDURE REPORT [place], [place] Date of Service: 10/15/25 Ship Surveyor: Roxanne Magdaleno MD PROCEDURES PERFORMED: Coronary angiogram, l, conscious sedation administration and supervision, less than 15 minutes; fluoroscopy use and interpretation. US guided vascular access saved to pacs sedation 15-30 mins PREOPERATIVE DIAGNOSES: Aortic stenosis POSTOP DIAGNOSIS: aortic stenosis DESCRIPTION OF PROCEDURE: The patient or appropriate family signed informed consent understanding the risks, benefits and alternatives of the procedure, they wished to proceed. The patient was brought to the cardiac laboratory courier in n.p.o. state. The patient was prepped in a sterile fashion. Sedation was used per cardiac cath protocol. I administered 2 mL of 2% lidocaine to the right wrist. there was no pulse palpable. I used US guidance and identified a patent R radialt artery and cannulated it but couldnt wire given small nature. the ulnar artery was quite smal as well and not able to cannulate it. therefore i gave 8 cc of lidocaine to R groin. I identified a patent R common femoral artery and cannulated it with 18 G cook needle. With an antegrade front wall puncture. I cannulated the right RESIDENTIAL ENERGY AUDITOR and placed a 6-[place] Glidesheath Next, a - [id number] and JL4 and were used for coronary angiogram and LVEDP measurement and pressure pullback. At the completion of procedure, all guides and wires were removed, and there were no immediate complications. iliofemoral angio performed showing appropriate arteriotomy site. 6f angioseal used for closure. FINDINGS: RCA: Moderate probably co dominant vessel off the right sinus of Valsalva, there is no severe flow limiting stenosis. LEFT MAIN: Moderate size left main, it bifurcates into LAD and circumflex. no stenosis CIRCUMFLEX: Moderate caliber vessel coming off the left main with no flow limiting stenosis. co dominant vessel. LAD: LAD is a moderate caliber vessel coming of the left main. no stenosis. CONCLUSIONS: 1. no severe cad noted PLAN: Aggressive risk factor modification and medical management for the patient. aortic stenosis workup ROXANNE MAGDALENO MD Oct 15, 2025 12:43
--- NOTE | 2025-10-15 14:30 | DVHDS2 ---
Discharge Summary Date of Admission Oct 12, 2025 at 11:22 Date of Discharge: Oct 15, 2025 Labs/Diagnostic Data: Laboratory Results Test 10/15/25 05:59 10/15/25 05:12 10/13/25 05:37 10/12/25 13:14 POC Glucose 119 mg/dl (70-106) White Blood Count 8.2 10^3/uL (4.4-10.8) Red Blood Count 3.92 10^6/uL (4.0-5.20) Hemoglobin 11.0 g/dL (12.2-16.2) Hematocrit 32.0 % (36.0-46.0) Mean Corpuscular Volume 81.6 fL (80.0-100.0) Mean Corpuscular Hemoglobin 27.9 pg (28.0-32.0) Mean Corpuscular Hemoglobin Concent 34.2 g/dL (32.0-36.0) Red Cell Distribution Width 15.3 % (11.8-14.3) Platelet Count 213 10^3/uL (140-450) Mean Platelet Volume 8.0 fL (6.9-10.8) Neutrophils (%) (Auto) 77.5 % (37.0-80.0) Lymphocytes (%) (Auto) 12.4 % (10.0-50.0) Monocytes (%) (Auto) 7.5 % (0.0-12.0) Eosinophils (%) (Auto) 2.3 % (0.0-7.0) Basophils (%) (Auto) 0.3 % (0.0-2.0) Neutrophils # (Auto) 6.3 10 ^3/uL (1.6-8.6) Lymphocytes # (Auto) 1.0 10 ^3/uL (0.4-5.4) Monocytes # (Auto) 0.6 10 ^3/uL (0-1.3) Eosinophils # (Auto) 0.2 10 ^3/uL (0-0.8) Basophils # (Auto) 0 10 ^3/uL (0-0.2) Nucleated Red Blood Cells 0.1 % Prothrombin Time 10.1 sec (9.3-11.8) Prothrombin Time INR 0.95 (0.9-1.15) Activated Partial Thromboplast Time 34.2 SEC (24.5-34.5) Sodium Level 142 mmol/L (136-145) Potassium Level 4.0 mmol/L (3.5-5.1) Chloride Level 104 mmol/L (98-107) Carbon Dioxide Level 28 mmol/L (20-31) Anion Gap 10 (5-15) Blood Urea Nitrogen 34 mg/dL (9-23) Creatinine 1.38 mg/dL (0.550-1.02) Glomerular Filtration Rate Calc 40 mL/min (>90) BUN/Creatinine Ratio 24.6 (10.0-20.0) Serum Glucose 130 mg/dL (74-106) Calcium Level 8.8 mg/dL (8.7-10.4) Hemoglobin A1c 6.2 % A1C (<5.7) Total Bilirubin 0.4 mg/dL (0.2-1.0) Aspartate Amino Transferase (AST) 13 U/L (13-40) Alanine Aminotransferase (ALT) 16 U/L (7-40) Alkaline Phosphatase 101 U/L (46-116) B-Type Natriuretic Peptide 107.85 pg/mL (0-100) Total Protein 6.7 g/dL (5.7-8.2) Albumin 3.9 g/dL (3.2-4.8) Triglycerides Level 158 mg/dL (< 150) Cholesterol Level 146 mg/dL (< 200) LDL Cholesterol 73 mg/dL (< 100) HDL Cholesterol 50 mg/dL (40-59) Troponin I High Sensitivity < 3 ng/L (</=34) Test 10/12/25 10:39 10/12/25 09:35 Magnesium Level 1.6 mg/dL (1.6-2.6) Thyroid Stimulating Hormone (TSH) 0.97 uIU/mL (0.55-4.78) Other Laboratory Tests 10/15/25 05:12 Brief Hx & Hospital Course: 75-year-old female with extensive past medical history including atrial arrhythmia (irregular heartbeat), hypertension, hyperlipidemia, stable angina, chronic heart failure, chronic kidney disease, diabetes mellitus, anxiety, asthma, GERD, gout, arthritis, glaucoma, thyroid disease status post thyroidectomy for thyroid cancer, presents with left-sided chest pain for five days. She arrived with her son. Patient reports the chest pain began approximately five days ago, located in the left chest wall, radiating to the left shoulder and down the left arm. She describes the pain as pressure-like and worse with movement and palpation, suggesting a musculoskeletal component. 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 She was evaluated at a [facility] yesterday and was advised to come to the ED for further evaluation. while In the ED, aspirin was administered. Laboratory evaluation showed CBC unremarkable, creatinine 1.26, BUN 24, glucose 189. Troponin was negative (x1). Chest X-ray was negative. Review of records shows a prior echocardiogram in 2022 with EF 5560%. Given ongoing chest pain with cardiac risk factors, patient will be admitted for ACS rule-out and telemetry monitoring. Had cath with no CAD noted Condition at Discharge: Good Final Diagnosis/Problems List chest pain due to costocondritis Discharge Disposition: Home Discharge Instruct/Medications Diet: Regular Activity: No Restrictions, As Tolerated Follow Up/Referral: PCP in 7days Medications: same home medications Scheduled Allopurinol (Zyloprim Tablet), 300 MG PO DAILY Amlodipine Besylate (Amlodipine Besylate), 1 TAB PO DAILY, (Reported) Carvedilol (Carvedilol), 1 TAB PO BID, (Reported) Duloxetine HCl (Duloxetine HCl), 1 CAP PO DAILY, (Reported) Famotidine (Famotidine), 1 TAB PO DAILY, (Reported) Gabapentin (Gabapentin), 1 TAB PO TID, (Reported) Hydrocodone-Acetaminophen (Hydrocodone/Acetaminophen 10-325 mg), 1 TAB PO BID, (Reported) Levothyroxine Sodium (Synthroid), 1 TAB PO DAILY Losartan Potassium & Hydrochlo (Losartan Potassium/Hydroc), 1 TAB PO DAILY, (Reported) Meloxicam (Meloxicam), 1 TAB PO DAILY, (Reported) Metformin Hydrochloride (Metformin Hcl Er), 1 TAB PO BID, (Reported) Pravastatin Sodium (Pravachol Tablet), 10 MG PO DAILY, (Reported) Pregabalin (Pregabalin), 1 CAP PO BID, (Reported) Sertraline Hcl (Sertraline Hcl), 1 TAB PO DAILY, (Reported) Tolterodine Tartrate (Tolterodine Tartrate ER), 1 CAP PO DAILY, (Reported) Miscellaneous Medications Hydrocortisone Base (Hydrocortisone), TOP, (Reported) Discharge Statement: "Patient was advised to return to the ER or call 911 if any headaches, dizziness, shortness of breath, chest pain, abdominal pain, bleeding, fevers, or worsening of medical condition. Patient was counseled about treatment plan, medications, possible side effects, patientverbalized understanding. All questions were answered to the best of my ability. This discharge took greater then 30 minutes in planning, reviewing documentation, counseling the patient, and discussing with other team members." ASSESSMENT ASSESSMENT Assessment chest pain due to costocondritis Date of Service: Oct 15, 2025 Billing Provider: EULA FABIAN MD Common Visit Codes: [id number] DISCH DAY >30min EULA FABIAN MD Oct 15, 2025 14:30
--- NOTE | 2025-10-15 16:06 | DVHPN2 ---
Subjective some sob Reviewed: H&P Changes from previous H/P or p: No Changes Eyes: No Pain, No Vision change, No Conjunctivae inflammation, No Eyelid inflammation, No Other, No Redness ENT: No Ear pain, No Ear discharge, No Nose pain, No Nose discharge, No Nose congestion, No Mouth pain, No Mouth swelling, No Throat pain, No Throat swelling, No Other Cardiovascular: Chest Pain; No Palpitations, No Orthopnea, No Paroxysmal Noc. Dyspnea, No Edema, No Lt Headedness, No Other Respiratory: No Cough, No Dry; Shortness of breath; No SOB with excertion, No Wheezing, No Hemoptysis, No Pleuritic Pain, No Sputum, No Other Gastrointestinal: No Nausea, No Vomiting, No Abdominal Pain, No Diarrhea, No Constipation, No Melena, No Hematochezia, No Other Genitourinary: No Dysuria, No Frequency, No Incontinence, No Hematuria, No Retention, No Other Musculoskeletal: No other, No neck pain, No shoulder pain, No arm pain, No back pain, No hand pain, No leg pain, No foot pain Skin: No Rash, No Lesions, No Jaundice, No Bruising, No Other Objective Vitals Vital Signs Date Time Temp Pulse Resp B/P (MAP) Pulse Ox O2 Delivery O2 Flow Rate FiO2 10/15/25 13:35 73 13 113/68 (83) 99 10/15/25 12:43 97.8 97.8 10/15/25 08:00 Room Air* 0 21 Intake/Output Intake and Output 10/15/25 07:00 Intake Total 2775 ml Balance 2775 ml Intake Oral 2775 ml # Voids 7 # Bowel Movements 2 General Appearance: Alert, Oriented X3 Cardiovascular: Regular rate, Normal S1, Normal S2 Abdomen: Normal bowel sounds Medications Current Medications Medications Dose Ordered Sig/Jose L Route Start Time Stop Time Status Last Admin Dose Admin Gabapentin 300 mg TID PO 10/12/25 14:00 10/15/25 05:55 300 MG Pravastatin Sodium 10 mg DAILY PO 10/13/25 10:00 10/15/25 09:23 10 MG Patient Own Medication 1 tab DAILY PO 10/13/25 10:00 Sertraline HCl 100 mg DAILY PO 10/13/25 10:00 10/14/25 09:09 100 MG Diagnostic Test (Pha) 1 strip ACHS 10/12/25 11:30 12/15/25 05:59 1 STRIP Insulin Human Regular ACHS SC 10/12/25 11:30 10/14/25 21:39 3 UNITS Dextrose 50 ml UD PRN IV 10/12/25 11:30 Aspirin 81 mg DAILY PO 10/13/25 10:00 10/15/25 09:24 81 MG Acetaminophen 325 mg Q4HP PRN PO 10/12/25 11:30 10/14/25 21:40 325 MG Docusate Sodium 100 mg DAILY PO 10/13/25 10:00 10/15/25 09:23 100 MG Nitroglycerin 0.4 mg Q5MINP PRN SL 10/12/25 11:30 Morphine Sulfate 2 mg Q30M PRN IV 10/12/25 11:30 Pantoprazole Sodium 40 mg DAILY IV 10/13/25 10:00 10/15/25 09:19 40 MG Furosemide 40 mg DAILY IV 10/13/25 13:15 10/15/25 09:21 40 MG Levothyroxine Sodium 125 mcg DAILY@0630 PO 10/15/25 06:30 10/15/25 05:57 125 MCG Laboratory Results Laboratory Tests 10/15/25 05:12 Chemistry Test 10/15/25 05:12 Calcium Level 8.8 mg/dL (8.7-10.4) Coagulation Test 10/15/25 05:12 Prothrombin Time 10.1 sec (9.3-11.8) Prothrombin Time INR 0.95 (0.9-1.15) Activated Partial Thromboplast Time 34.2 SEC (24.5-34.5) Assessment/Plan Assessment/Plan 75-year-old female admitted for acute chest pain with radiation to left arm, requiring ACS rule-out, telemetry monitoring, and cardiology evaluation given multiple cardiovascular comorbidities. acute Chest pain rule out acute coronary syndrome Acute diastolic HF exacerbation Troponins negative IV lasix cardiology on consult>recs for stress test Had cath with no CAD Cardiology recommended transfer to [facility] for severe aortic stenosis Diabetes mellitus type 2 uncontrolled Glucose 189 Accuchecks ISS chronic problems History of stable angina Chronic heart failure (preserved EF) Last EF 5560% (2022) Hypertension Resume home antihypertensives Hyperlipidemia Continue statin therapy Diabetes mellitus Glucose 189 Accuchecks SSI as needed Chronic kidney disease Avoid nephrotoxins Monitor BMP Irregular heartbeat / atrial arrhythmia none noted Anxiety Reassurance Asthma Continue home inhalers GERD Continue PPI Gout No acute flare Thyroid disease status post thyroidectomy for cancer Continue thyroid hormone replacement Glaucoma Continue ophthalmic medications Arthritis Likely contributor to chest wall pain FEN / PPx Fluids: hl Electrolytes: Monitor BMP Nutrition: Cardiac/diabetic diet DVT Prophylaxis: SCDs or pharmacologic prophylaxis as appropriate GI Prophylaxis: Continue PPI Plan discussed with: Patient Date of Service: Oct 15, 2025 Billing Provider: EULA FABIAN MD Common Visit Codes: [id number] INP/OBS CARE(HIGH) EULA FABIAN MD Oct 15, 2025 16:06
[2025-10-15] MEDS: LORATADINE 10 MG TAB PO ONE (21:19)
[2025-10-16 01:00] VITALS: BP_SYST 122; BP_SYST 125; BP_DIAS 61; BP_DIAS 73; PULSE 66; PULSE 75; RESP 16; RESP 18; TEMP 97.9; TEMP 98; O2SAT 96; O2SAT 97
--- NOTE | 2025-10-16 01:12 | DVHPN2 ---
Progress Note - Dictate Date Seen: Oct 15, 2025 Medical Necessity Reason Pt with a Central, PICC or Fol: No Subjective Patient was seen and evaluated in follow up. Patient is s/p cath, no sig cad. There is severe aortic valve stenosis. Patient is recommended for transfer to higher level of care given severe aortic valve stenosis. 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 vital signs Vital Sign Date Time Temp Pulse Resp B/P (MAP) Pulse Ox O2 Delivery O2 Flow Rate FiO2 10/15/25 21:00 98.2 79 17 132/64 (86) 95 98.2 10/15/25 20:00 Room Air* 0 21 Total Intake and Output 10/15/25 10/15/25 10/16/25 15:00 23:00 07:00 Intake Total 1100 ml Balance 1100 ml medications Current Medications Medications Dose Ordered Sig/Jose L Route Start Time Stop Time Status Last Admin Dose Admin Gabapentin 300 mg TID PO 10/12/25 14:00 10/15/25 21:19 300 MG Pravastatin Sodium 10 mg DAILY PO 10/13/25 10:00 10/15/25 09:23 10 MG Sertraline HCl 100 mg DAILY PO 10/13/25 10:00 10/14/25 09:09 100 MG Diagnostic Test (Pha) 1 strip ACHS 10/12/25 11:30 10/15/25 22:09 1 STRIP Insulin Human Regular ACHS SC 10/12/25 11:30 10/15/25 17:00 4 UNITS Dextrose 50 ml UD PRN IV 10/12/25 11:30 Aspirin 81 mg DAILY PO 10/13/25 10:00 10/15/25 09:24 81 MG Acetaminophen 325 mg Q4HP PRN PO 10/12/25 11:30 10/15/25 16:50 325 MG Docusate Sodium 100 mg DAILY PO 10/13/25 10:00 10/15/25 09:23 100 MG Nitroglycerin 0.4 mg Q5MINP PRN SL 10/12/25 11:30 Morphine Sulfate 2 mg Q30M PRN IV 10/12/25 11:30 Pantoprazole Sodium 40 mg DAILY IV 10/13/25 10:00 10/15/25 09:19 40 MG Furosemide 40 mg DAILY IV 10/13/25 13:15 10/15/25 09:21 40 MG Levothyroxine Sodium 125 mcg DAILY@0630 PO 10/15/25 06:30 10/15/25 05:57 125 MCG Losartan Potassium 100 mg DAILY PO 10/16/25 10:00 Hydrochlorothiazide 25 mg DAILY PO 10/16/25 10:00 objective GENERAL: Alert and oriented x 3. No acute distress. EYES: PERRL, EOMI. Anicteric. HENT: Moist mucous membranes. LUNGS: Clear to auscultation bilaterally. CARDIOVASCULAR: Regular rate and rhythm. ABDOMEN: Soft, non-tender and non-distended. EXTREMITIES: No edema. NEUROLOGIC: No focal neurological deficits. SKIN: Warm, dry. laboratory and microbiology Laboratory Tests 10/15/25 05:12 Test 10/15/25 05:12 Range/Units Serum Glucose 130 H 74-106 mg/dL Problem List Chest pain. Hypertension. Dyslipidemia. History of thyroid cancer status post thyroidectomy. Chronic pain. Glaucoma. Morbid obesity. Assessment/Plan Continued all current supportive medical care. Aspirin. Diuretics with Lasix. Losartan. Morphine for pain management. GI prophylactics. Additional plan as per the hospital course. Plan discussed with: Patient RYAN PASCUAL MD Oct 16, 2025 01:12
[2025-10-16 05:00] VITALS: BP 133/80; PULSE 83; RESP 17; TEMP 98.2; O2SAT 93
[2025-10-16 07:16] LABS: Anion Gap 11 (5-15); Calcium 8.8 mg/dL (8.7-10.4); Carbon Dioxide 27 mmol/L (20-31); Chloride 101 mmol/L (98-107); Potassium 3.7 mmol/L (3.5-5.1); Sodium 139 mmol/L (136-145)
[2025-10-16 07:22] LABS: BUN/Creatinine Ratio 23.3 (10.0-20.0)
[2025-10-16 07:25] LABS: Blood Urea Nitrogen 28 mg/dL (9-23); Glucose 117 mg/dL (74-106)
[2025-10-16 08:00] VITALS: PULSE 78; PULSE 79; RESP 18; O2SAT 93
--- NOTE | 2025-10-16 09:03 | DVHPN2 ---
Subjective some sob Reviewed: H&P Changes from previous H/P or p: No Changes Eyes: No Pain, No Vision change, No Conjunctivae inflammation, No Eyelid inflammation, No Other, No Redness ENT: No Ear pain, No Ear discharge, No Nose pain, No Nose discharge, No Nose congestion, No Mouth pain, No Mouth swelling, No Throat pain, No Throat swelling, No Other Cardiovascular: Chest Pain; No Palpitations, No Orthopnea, No Paroxysmal Noc. Dyspnea, No Edema, No Lt Headedness, No Other Respiratory: No Cough, No Dry; Shortness of breath; No SOB with excertion, No Wheezing, No Hemoptysis, No Pleuritic Pain, No Sputum, No Other Gastrointestinal: No Nausea, No Vomiting, No Abdominal Pain, No Diarrhea, No Constipation, No Melena, No Hematochezia, No Other Genitourinary: No Dysuria, No Frequency, No Incontinence, No Hematuria, No Retention, No Other Musculoskeletal: No other, No neck pain, No shoulder pain, No arm pain, No back pain, No hand pain, No leg pain, No foot pain Skin: No Rash, No Lesions, No Jaundice, No Bruising, No Other Objective Vitals Vital Signs Date Time Temp Pulse Resp B/P (MAP) Pulse Ox O2 Delivery O2 Flow Rate FiO2 10/16/25 05:00 98.2 83 17 133/80 (97) 93 98.2 10/15/25 20:00 Room Air* 0 21 Intake/Output Intake and Output 10/16/25 07:00 Intake Total 1500 ml Balance 1500 ml Intake Oral 1500 ml # Voids 6 # Bowel Movements 2 General Appearance: Alert, Oriented X3 Cardiovascular: Regular rate, Normal S1, Normal S2 Abdomen: Normal bowel sounds Medications Current Medications Medications Dose Ordered Sig/Jose L Route Start Time Stop Time Status Last Admin Dose Admin Gabapentin 300 mg TID PO 10/12/25 14:00 10/16/25 05:40 300 MG Pravastatin Sodium 10 mg DAILY PO 10/13/25 10:00 10/15/25 09:23 10 MG Sertraline HCl 100 mg DAILY PO 10/13/25 10:00 10/14/25 09:09 100 MG Diagnostic Test (Pha) 1 strip ACHS 10/12/25 11:30 10/16/25 05:49 1 STRIP Insulin Human Regular ACHS SC 10/12/25 11:30 10/15/25 17:00 4 UNITS Dextrose 50 ml UD PRN IV 10/12/25 11:30 Aspirin 81 mg DAILY PO 10/13/25 10:00 10/15/25 09:24 81 MG Acetaminophen 325 mg Q4HP PRN PO 10/12/25 11:30 10/16/25 05:43 325 MG Docusate Sodium 100 mg DAILY PO 10/13/25 10:00 10/15/25 09:23 100 MG Nitroglycerin 0.4 mg Q5MINP PRN SL 10/12/25 11:30 Morphine Sulfate 2 mg Q30M PRN IV 10/12/25 11:30 Pantoprazole Sodium 40 mg DAILY IV 10/13/25 10:00 10/15/25 09:19 40 MG Furosemide 40 mg DAILY IV 10/13/25 13:15 10/15/25 09:21 40 MG Levothyroxine Sodium 125 mcg DAILY@0630 PO 10/15/25 06:30 10/16/25 05:40 125 MCG Losartan Potassium 100 mg DAILY PO 10/16/25 10:00 Hydrochlorothiazide 25 mg DAILY PO 10/16/25 10:00 Laboratory Results Laboratory Tests 10/15/25 05:12 10/16/25 06:01 Chemistry Test 10/16/25 06:01 Calcium Level 8.8 mg/dL (8.7-10.4) Assessment/Plan Assessment/Plan 75-year-old female admitted for acute chest pain with radiation to left arm, requiring ACS rule-out, telemetry monitoring, and cardiology evaluation given multiple cardiovascular comorbidities. acute Chest pain rule out acute coronary syndrome Acute diastolic HF exacerbation Troponins negative IV lasix cardiology on consult>recs for stress test Had cath with no CAD Cardiology recommended transfer to [place] for severe aortic stenosis Diabetes mellitus type 2 uncontrolled Glucose 189 Accuchecks ISS chronic problems History of stable angina Chronic heart failure (preserved EF) Last EF 5560% (2022) Hypertension Resume home antihypertensives Hyperlipidemia Continue statin therapy Diabetes mellitus Glucose 189 Accuchecks SSI as needed Chronic kidney disease Avoid nephrotoxins Monitor BMP Irregular heartbeat / atrial arrhythmia none noted Anxiety Reassurance Asthma Continue home inhalers GERD Continue PPI Gout No acute flare Thyroid disease status post thyroidectomy for cancer Continue thyroid hormone replacement Glaucoma Continue ophthalmic medications Arthritis Likely contributor to chest wall pain FEN / PPx Fluids: hl Electrolytes: Monitor BMP Nutrition: Cardiac/diabetic diet DVT Prophylaxis: SCDs or pharmacologic prophylaxis as appropriate GI Prophylaxis: Continue PPI Dispo: MEDICALLY STABLE FOR TRANSFER TO [facility] discussed with: Patient Date of Service: Oct 16, 2025 Billing Provider: EULA FABIAN MD Common Visit Codes: [id number] INP/OBS CARE(HIGH) EULA FABIAN MD Oct 16, 2025 09:03
[2025-10-16] MEDS: hydroCHLOROthiazide 25 MG TAB PO SCH (09:32)
[2025-10-16] MEDS: LOSARTAN POTASSIUM 50 MG TAB PO SCH (09:49)
[2025-10-16 17:00] VITALS: BP 108/73; PULSE 92; RESP 20; TEMP 98.3; O2SAT 100
[2025-10-16 20:00] VITALS: PULSE 61; PULSE 86; PULSE 87; RESP 19; O2SAT 87
[2025-10-16 21:00] VITALS: BP 121/75; PULSE 89; RESP 19; TEMP 98.2; O2SAT 95
[2025-10-16] MEDS: HYDROcodone-ACET 7.5/325MG TAB PO PRN (21:19)
--- NOTE | 2025-10-16 23:29 | DVHPN2 ---
Progress Note - Dictate Date Seen: Oct 16, 2025 Medical Necessity Reason Pt with a Central, PICC or Fol: No Subjective Patient was seen and evaluated in follow up. Patient complains of generalized pain. CM is arranging HLOC transfer. 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 Telemetry reviewed. vital signs Vital Sign Date Time Temp Pulse Resp B/P (MAP) Pulse Ox O2 Delivery O2 Flow Rate FiO2 10/16/25 09:49 103/60 10/16/25 08:00 79 10/16/25 05:00 98.2 17 93 98.2 10/15/25 20:00 Room Air* 0 21 Total Intake and Output 10/15/25 10/15/25 10/16/25 15:00 23:00 07:00 Intake Total 1100 ml 400 ml Balance 1100 ml 400 ml medications Current Medications Medications Dose Ordered Sig/Jose L Route Start Time Stop Time Status Last Admin Dose Admin Gabapentin 300 mg TID PO 10/12/25 14:00 10/16/25 05:40 300 MG Pravastatin Sodium 10 mg DAILY PO 10/13/25 10:00 10/16/25 09:32 10 MG Sertraline HCl 100 mg DAILY PO 10/13/25 10:00 10/16/25 09:31 100 MG Diagnostic Test (Pha) 1 strip ACHS 10/12/25 11:30 10/16/25 05:49 1 STRIP Insulin Human Regular ACHS SC 10/12/25 11:30 10/15/25 17:00 4 UNITS Dextrose 50 ml UD PRN IV 10/12/25 11:30 Aspirin 81 mg DAILY PO 10/13/25 10:00 10/16/25 09:31 81 MG Acetaminophen 325 mg Q4HP PRN PO 10/12/25 11:30 10/16/25 05:43 325 MG Docusate Sodium 100 mg DAILY PO 10/13/25 10:00 10/16/25 09:33 100 MG Nitroglycerin 0.4 mg Q5MINP PRN SL 10/12/25 11:30 Morphine Sulfate 2 mg Q30M PRN IV 10/12/25 11:30 Pantoprazole Sodium 40 mg DAILY IV 10/13/25 10:00 10/16/25 09:30 40 MG Furosemide 40 mg DAILY IV 10/13/25 13:15 10/16/25 09:31 40 MG Levothyroxine Sodium 125 mcg DAILY@0630 PO 10/15/25 06:30 10/16/25 05:40 125 MCG Losartan Potassium 100 mg DAILY PO 10/16/25 10:00 Hydrochlorothiazide 25 mg DAILY PO 10/16/25 10:00 10/16/25 09:32 25 MG objective GENERAL: Alert and oriented x 3. No acute distress. EYES: PERRL, EOMI. Anicteric. HENT: Moist mucous membranes. LUNGS: Clear to auscultation bilaterally. CARDIOVASCULAR: Regular rate and rhythm. ABDOMEN: Soft, non-tender and non-distended. EXTREMITIES: No edema. NEUROLOGIC: No focal neurological deficits. SKIN: Warm, dry. laboratory and microbiology Laboratory Tests 10/16/25 06:01 10/15/25 05:12 Test 10/16/25 06:01 Range/Units Serum Glucose 117 H 74-106 mg/dL Problem List Chest pain. Hypertension. Dyslipidemia. History of thyroid cancer status post thyroidectomy. Chronic pain. Glaucoma. Morbid obesity. Assessment/Plan Continued all current supportive medical care. Aspirin. Diuretics with Lasix. Losartan. Morphine for pain management. GI prophylactics. Additional plan as per the hospital course. Plan discussed with: Patient RYAN PASCUAL MD Oct 16, 2025 13:32
[2025-10-17] VITALS (7 sets, daily range): BP systolic 97–134; BP diastolic 57–78; PULSE 71–82; RESP 15–18; TEMP 97.9–98.6; O2SAT 91–95
[2025-10-17 07:03] LABS: Anion Gap 11 (5-15); Carbon Dioxide 29 mmol/L (20-31); Potassium 3.8 mmol/L (3.5-5.1); Sodium 137 mmol/L (136-145)
[2025-10-17 07:04] LABS: Calcium 8.9 mg/dL (8.7-10.4)
[2025-10-17 07:09] LABS: BUN/Creatinine Ratio 21.8 (10.0-20.0)
[2025-10-17 07:15] LABS: Blood Urea Nitrogen 32 mg/dL (9-23); Chloride 97 mmol/L (98-107); Glucose 112 mg/dL (74-106)
--- NOTE | 2025-10-17 10:37 | DVHDS2 ---
Discharge Summary Date of Admission Oct 12, 2025 at 11:22 Date of Discharge: Oct 17, 2025 Admitting Diagnosis Chest pain syndrome, ruled out acute coronary syndrome Acute diastolic congestive heart failure with exacerbation Diabetes type 2 uncontrolled History of stable angina Chronic heart failure (preserved EF) Last EF 5560% (2022) Hypertension Hyperlipidemia Diabetes mellitus Chronic kidney disease Irregular heartbeat / atrial arrhythmia none noted Anxiety Asthma GERD Gout Thyroid cancer status post thyroidectomy Glaucoma Posterior Arthritis Labs/Diagnostic Data: Laboratory Results Test 10/17/25 06:15 10/17/25 06:05 10/15/25 05:12 10/13/25 05:37 POC Glucose 143 mg/dl (70-106) Sodium Level 137 mmol/L (136-145) Potassium Level 3.8 mmol/L (3.5-5.1) Chloride Level 97 mmol/L (98-107) Carbon Dioxide Level 29 mmol/L (20-31) Anion Gap 11 (5-15) Blood Urea Nitrogen 32 mg/dL (9-23) Creatinine 1.47 mg/dL (0.550-1.02) Glomerular Filtration Rate Calc 37 mL/min (>90) BUN/Creatinine Ratio 21.8 (10.0-20.0) Serum Glucose 112 mg/dL (74-106) Calcium Level 8.9 mg/dL (8.7-10.4) White Blood Count 8.2 10^3/uL (4.4-10.8) Red Blood Count 3.92 10^6/uL (4.0-5.20) Hemoglobin 11.0 g/dL (12.2-16.2) Hematocrit 32.0 % (36.0-46.0) Mean Corpuscular Volume 81.6 fL (80.0-100.0) Mean Corpuscular Hemoglobin 27.9 pg (28.0-32.0) Mean Corpuscular Hemoglobin Concent 34.2 g/dL (32.0-36.0) Red Cell Distribution Width 15.3 % (11.8-14.3) Platelet Count 213 10^3/uL (140-450) Mean Platelet Volume 8.0 fL (6.9-10.8) Neutrophils (%) (Auto) 77.5 % (37.0-80.0) Lymphocytes (%) (Auto) 12.4 % (10.0-50.0) Monocytes (%) (Auto) 7.5 % (0.0-12.0) Eosinophils (%) (Auto) 2.3 % (0.0-7.0) Basophils (%) (Auto) 0.3 % (0.0-2.0) Neutrophils # (Auto) 6.3 10 ^3/uL (1.6-8.6) Lymphocytes # (Auto) 1.0 10 ^3/uL (0.4-5.4) Monocytes # (Auto) 0.6 10 ^3/uL (0-1.3) Eosinophils # (Auto) 0.2 10 ^3/uL (0-0.8) Basophils # (Auto) 0 10 ^3/uL (0-0.2) Nucleated Red Blood Cells 0.1 % Prothrombin Time 10.1 sec (9.3-11.8) Prothrombin Time INR 0.95 (0.9-1.15) Activated Partial Thromboplast Time 34.2 SEC (24.5-34.5) Hemoglobin A1c 6.2 % A1C (<5.7) Total Bilirubin 0.4 mg/dL (0.2-1.0) Aspartate Amino Transferase (AST) 13 U/L (13-40) Alanine Aminotransferase (ALT) 16 U/L (7-40) Alkaline Phosphatase 101 U/L (46-116) B-Type Natriuretic Peptide 107.85 pg/mL (0-100) Total Protein 6.7 g/dL (5.7-8.2) Albumin 3.9 g/dL (3.2-4.8) Triglycerides Level 158 mg/dL (< 150) Cholesterol Level 146 mg/dL (< 200) LDL Cholesterol 73 mg/dL (< 100) HDL Cholesterol 50 mg/dL (40-59) Test 10/12/25 13:14 10/12/25 10:39 10/12/25 09:35 Troponin I High Sensitivity < 3 ng/L (</=34) Magnesium Level 1.6 mg/dL (1.6-2.6) Thyroid Stimulating Hormone (TSH) 0.97 uIU/mL (0.55-4.78) Other Laboratory Tests 10/17/25 06:05 10/15/25 05:12 Brief Hx & Hospital Course: Please see the previous discharge summary for a full documentation. This is an 83 years old female with extensive past medical history including atrial arrhythmia, hypertension, hyperlipidemia, angina, chronic congestive heart failure, chronic kidney disease, diabetes, anxiety, asthma, GERD, gout, osteoarthritis, glaucoma, thyroid cancer come to emergency department because of left-sided chest pain for five days. The patient was admitted. The patient was found to have troponin negative. EKG is normal. She had a costochondritis chest pain. Is improved eventually. The patient had 2D echo done showed severe aortic stenosis. The patient is supposed to transfer to [facility] for valve surgery however her insurance company recommend outpatient follow up and will be arranged for her as outpatient evaluation for valve replacement. So today I am discharge the patient home. Advised her to follow up with surgical pathologist per schedule. Follow up with the Cardiothoracic surgeon per insurance recommendation for valve replacement. Follow up with primary care physician 1-2 weeks. Activity as tolerated. Diet per home diet. Physical exam: HEENT: Normocephalic atraumatic pupils equal react to light and accommodation. Extraocular muscles intact, conjunctiva pink, oropharynx moist, no thrush, no exudate. Lymphatic: No lymphadenopathy Cardiovascular exam: S1, S2 was heard. No murmurs, rubs, gallops Lung: Clear on auscultation bilaterally, no wheeze, rale, rhonchi. GI: Abdominal soft, nondistended, nontenderness, positive bowel sounds. Extremity: No crepitus, cyanosis, edema. Pedal pulses present bilateral. Full range of motion. Skin: Normal turgor, no rash. Psych: Alert, oriented x3. Neurology: No focal deficits, cranial nerve II to XII grossly intact. This medical document was created using an electronic medical record system with [id number] direct computerized dictation system. Although this document has been carefully reviewed, there may still be some phonetic and typographical errors. These areas are purely typographical due to imperfections of the software programs, and do not reflect any compromise in the patient's medical care. Condition at Discharge: Stable Final Diagnosis/Problems List chest pain due to costocondritis ruled out acute coronary syndrome Acute diastolic congestive heart failure with exacerbation Diabetes type 2 uncontrolled History of stable angina Chronic heart failure (preserved EF) Last EF 5560% (2022) Hypertension Hyperlipidemia Diabetes mellitus Chronic kidney disease Irregular heartbeat / atrial arrhythmia none noted Anxiety Asthma GERD Gout Thyroid cancer status post thyroidectomy Glaucoma OA Severe aortic stenosis Discharge Disposition: Home Discharge Instruct/Medications Diet: Regular Activity: No Restrictions, As Tolerated Follow Up/Referral: PCP in 7days Medications: same home medications Scheduled Allopurinol (Zyloprim Tablet), 300 MG PO DAILY Amlodipine Besylate (Amlodipine Besylate), 1 TAB PO DAILY, (Reported) Carvedilol (Carvedilol), 1 TAB PO BID, (Reported) Duloxetine HCl (Duloxetine HCl), 1 CAP PO DAILY, (Reported) Famotidine (Famotidine), 1 TAB PO DAILY, (Reported) Gabapentin (Gabapentin), 1 TAB PO TID, (Reported) Hydrocodone-Acetaminophen (Hydrocodone/Acetaminophen 10-325 mg), 1 TAB PO BID, (Reported) Levothyroxine Sodium (Synthroid), 1 TAB PO DAILY Losartan Potassium & Hydrochlo (Losartan Potassium/Hydroc), 1 TAB PO DAILY, (Reported) Meloxicam (Meloxicam), 1 TAB PO DAILY, (Reported) Metformin Hydrochloride (Metformin Hcl Er), 1 TAB PO BID, (Reported) Pravastatin Sodium (Pravachol Tablet), 10 MG PO DAILY, (Reported) Pregabalin (Pregabalin), 1 CAP PO BID, (Reported) Sertraline Hcl (Sertraline Hcl), 1 TAB PO DAILY, (Reported) Tolterodine Tartrate (Tolterodine Tartrate ER), 1 CAP PO DAILY, (Reported) Miscellaneous Medications Hydrocortisone Base (Hydrocortisone), TOP, (Reported) Discharge Statement: "Patient was advised to return to the ER or call 911 if any headaches, dizziness, shortness of breath, chest pain, abdominal pain, bleeding, fevers, or worsening of medical condition. Patient was counseled about treatment plan, medications, possible side effects, patientverbalized understanding. All questions were answered to the best of my ability. This discharge took greater then 30 minutes in planning, reviewing documentation, counseling the patient, and discussing with other team members." ASSESSMENT ASSESSMENT Assessment chest pain due to costocondritis Date of Service: Oct 17, 2025 Billing Provider: WILLIE MCGINNIS MD Common Visit Codes: [id number] DISCH DAY >30min WILLIE MCGINNIS MD Oct 17, 2025 10:37
--- NOTE | 2025-10-17 10:37 | DVHPN2 ---
Reviewed: H&P Eyes: No Pain, No Vision change, No Conjunctivae inflammation, No Eyelid inflammation, No Other, No Redness ENT: No Ear pain, No Ear discharge, No Nose pain, No Nose discharge, No Nose congestion, No Mouth pain, No Mouth swelling, No Throat pain, No Throat swelling, No Other Cardiovascular: Chest Pain; No Palpitations, No Orthopnea, No Paroxysmal Noc. Dyspnea, No Edema, No Lt Headedness, No Other Respiratory: No Cough, No Dry; Shortness of breath; No SOB with excertion, No Wheezing, No Hemoptysis, No Pleuritic Pain, No Sputum, No Other Gastrointestinal: No Nausea, No Vomiting, No Abdominal Pain, No Diarrhea, No Constipation, No Melena, No Hematochezia, No Other Genitourinary: No Dysuria, No Frequency, No Incontinence, No Hematuria, No Retention, No Other Musculoskeletal: No other, No neck pain, No shoulder pain, No arm pain, No back pain, No hand pain, No leg pain, No foot pain Skin: No Rash, No Lesions, No Jaundice, No Bruising, No Other Objective Vitals Vital Signs Date Time Temp Pulse Resp B/P (MAP) Pulse Ox O2 Delivery O2 Flow Rate FiO2 10/17/25 09:48 103/57 10/17/25 09:19 98.2 71 15 92 98.2 10/16/25 20:00 Room Air* 0 21 Intake/Output Intake and Output 10/17/25 07:00 Intake Total 1860 ml Output Total 1 ml Balance 1859 ml Intake Oral 1860 ml Output Stool Total 1 ml # Voids 8 General Appearance: Alert, Oriented X3 Cardiovascular: Regular rate, Normal S1, Normal S2 Abdomen: Normal bowel sounds Medications Current Medications Medications Dose Ordered Sig/Jose L Route Start Time Stop Time Status Last Admin Dose Admin Gabapentin 300 mg TID PO 10/12/25 14:00 10/17/25 05:56 300 MG Pravastatin Sodium 10 mg DAILY PO 10/13/25 10:00 10/17/25 09:47 10 MG Sertraline HCl 100 mg DAILY PO 10/13/25 10:00 10/17/25 09:45 100 MG Diagnostic Test (Pha) 1 strip ACHS 10/12/25 11:30 10/17/25 06:14 1 STRIP Insulin Human Regular ACHS SC 10/12/25 11:30 10/17/25 06:16 2 UNITS Dextrose 50 ml UD PRN IV 10/12/25 11:30 Aspirin 81 mg DAILY PO 10/13/25 10:00 10/17/25 09:47 81 MG Acetaminophen 325 mg Q4HP PRN PO 10/12/25 11:30 10/16/25 15:14 325 MG Docusate Sodium 100 mg DAILY PO 10/13/25 10:00 10/17/25 09:44 100 MG Nitroglycerin 0.4 mg Q5MINP PRN SL 10/12/25 11:30 Morphine Sulfate 2 mg Q30M PRN IV 10/12/25 11:30 Pantoprazole Sodium 40 mg DAILY IV 10/13/25 10:00 10/17/25 09:43 40 MG Furosemide 40 mg DAILY IV 10/13/25 13:15 10/17/25 09:44 40 MG Levothyroxine Sodium 125 mcg DAILY@0630 PO 10/15/25 06:30 10/17/25 05:56 125 MCG Losartan Potassium 100 mg DAILY PO 10/16/25 10:00 10/17/25 09:46 100 MG Hydrochlorothiazide 25 mg DAILY PO 10/16/25 10:00 10/17/25 09:48 25 MG Acetaminophen/ Hydrocodone Bitart 1 tab Q8HP PRN PO 10/16/25 21:00 10/17/25 09:08 1 TAB Laboratory Results Laboratory Tests 10/15/25 05:12 10/17/25 06:05 Chemistry Test 10/17/25 06:05 Calcium Level 8.9 mg/dL (8.7-10.4) WILLIE MCGINNIS MD Oct 17, 2025 10:37
--- NOTE | 2025-10-17 11:22 | DVHDS2 ---
Discharge Summary Date of Admission Oct 12, 2025 at 11:22 Date of Discharge: Oct 17, 2025 Labs/Diagnostic Data: Laboratory Results Test 10/17/25 06:15 10/17/25 06:05 10/15/25 05:12 10/13/25 05:37 POC Glucose 143 mg/dl (70-106) Sodium Level 137 mmol/L (136-145) Potassium Level 3.8 mmol/L (3.5-5.1) Chloride Level 97 mmol/L (98-107) Carbon Dioxide Level 29 mmol/L (20-31) Anion Gap 11 (5-15) Blood Urea Nitrogen 32 mg/dL (9-23) Creatinine 1.47 mg/dL (0.550-1.02) Glomerular Filtration Rate Calc 37 mL/min (>90) BUN/Creatinine Ratio 21.8 (10.0-20.0) Serum Glucose 112 mg/dL (74-106) Calcium Level 8.9 mg/dL (8.7-10.4) White Blood Count 8.2 10^3/uL (4.4-10.8) Red Blood Count 3.92 10^6/uL (4.0-5.20) Hemoglobin 11.0 g/dL (12.2-16.2) Hematocrit 32.0 % (36.0-46.0) Mean Corpuscular Volume 81.6 fL (80.0-100.0) Mean Corpuscular Hemoglobin 27.9 pg (28.0-32.0) Mean Corpuscular Hemoglobin Concent 34.2 g/dL (32.0-36.0) Red Cell Distribution Width 15.3 % (11.8-14.3) Platelet Count 213 10^3/uL (140-450) Mean Platelet Volume 8.0 fL (6.9-10.8) Neutrophils (%) (Auto) 77.5 % (37.0-80.0) Lymphocytes (%) (Auto) 12.4 % (10.0-50.0) Monocytes (%) (Auto) 7.5 % (0.0-12.0) Eosinophils (%) (Auto) 2.3 % (0.0-7.0) Basophils (%) (Auto) 0.3 % (0.0-2.0) Neutrophils # (Auto) 6.3 10 ^3/uL (1.6-8.6) Lymphocytes # (Auto) 1.0 10 ^3/uL (0.4-5.4) Monocytes # (Auto) 0.6 10 ^3/uL (0-1.3) Eosinophils # (Auto) 0.2 10 ^3/uL (0-0.8) Basophils # (Auto) 0 10 ^3/uL (0-0.2) Nucleated Red Blood Cells 0.1 % Prothrombin Time 10.1 sec (9.3-11.8) Prothrombin Time INR 0.95 (0.9-1.15) Activated Partial Thromboplast Time 34.2 SEC (24.5-34.5) Hemoglobin A1c 6.2 % A1C (<5.7) Total Bilirubin 0.4 mg/dL (0.2-1.0) Aspartate Amino Transferase (AST) 13 U/L (13-40) Alanine Aminotransferase (ALT) 16 U/L (7-40) Alkaline Phosphatase 101 U/L (46-116) B-Type Natriuretic Peptide 107.85 pg/mL (0-100) Total Protein 6.7 g/dL (5.7-8.2) Albumin 3.9 g/dL (3.2-4.8) Triglycerides Level 158 mg/dL (< 150) Cholesterol Level 146 mg/dL (< 200) LDL Cholesterol 73 mg/dL (< 100) HDL Cholesterol 50 mg/dL (40-59) Test 10/12/25 13:14 10/12/25 10:39 10/12/25 09:35 Troponin I High Sensitivity < 3 ng/L (</=34) Magnesium Level 1.6 mg/dL (1.6-2.6) Thyroid Stimulating Hormone (TSH) 0.97 uIU/mL (0.55-4.78) Other Laboratory Tests 10/17/25 06:05 10/15/25 05:12 Condition at Discharge: Good Final Diagnosis/Problems List chest pain due to costocondritis Discharge Disposition: Home Discharge Instruct/Medications Diet: Regular Activity: No Restrictions, As Tolerated Follow Up/Referral: PCP in 7days Medications: same home medications Scheduled Allopurinol (Zyloprim Tablet), 300 MG PO DAILY Amlodipine Besylate (Amlodipine Besylate), 1 TAB PO DAILY, (Reported) Carvedilol (Carvedilol), 1 TAB PO BID, (Reported) Duloxetine HCl (Duloxetine HCl), 1 CAP PO DAILY, (Reported) Famotidine (Famotidine), 1 TAB PO DAILY, (Reported) Gabapentin (Gabapentin), 1 TAB PO TID, (Reported) Hydrocodone-Acetaminophen (Hydrocodone/Acetaminophen 10-325 mg), 1 TAB PO BID, (Reported) Levothyroxine Sodium (Synthroid), 1 TAB PO DAILY Losartan Potassium & Hydrochlo (Losartan Potassium/Hydroc), 1 TAB PO DAILY, (Reported) Meloxicam (Meloxicam), 1 TAB PO DAILY, (Reported) Metformin Hydrochloride (Metformin Hcl Er), 1 TAB PO BID, (Reported) Pravastatin Sodium (Pravachol Tablet), 10 MG PO DAILY, (Reported) Pregabalin (Pregabalin), 1 CAP PO BID, (Reported) Sertraline Hcl (Sertraline Hcl), 1 TAB PO DAILY, (Reported) Tolterodine Tartrate (Tolterodine Tartrate ER), 1 CAP PO DAILY, (Reported) Miscellaneous Medications Hydrocortisone Base (Hydrocortisone), TOP, (Reported) Discharge Statement: "Patient was advised to return to the ER or call 911 if any headaches, dizziness, shortness of breath, chest pain, abdominal pain, bleeding, fevers, or worsening of medical condition. Patient was counseled about treatment plan, medications, possible side effects, patientverbalized understanding. All questions were answered to the best of my ability. This discharge took greater then 30 minutes in planning, reviewing documentation, counseling the patient, and discussing with other team members." ASSESSMENT ASSESSMENT Assessment chest pain due to costocondritis WILLIE MCGINNIS MD Oct 17, 2025 11:22
--- NOTE | 2025-10-18 04:23 | DVHPN2 ---
Progress Note - Dictate Date Seen: Oct 17, 2025 Medical Necessity Reason Pt with a Central, PICC or Fol: No Subjective Patient was seen and evaluated in follow up. Patient has no new complaints at this time. Patient denies any cardiac symptoms. Patient is cardiac stable for discharge. Telemetry reviewed. vital signs Vital Sign Date Time Temp Pulse Resp B/P (MAP) Pulse Ox O2 Delivery O2 Flow Rate FiO2 10/17/25 09:48 103/57 10/17/25 09:19 98.2 71 15 92 98.2 10/16/25 20:00 Room Air* 0 21 Total Intake and Output 10/16/25 10/16/25 10/17/25 15:00 23:00 07:00 Intake Total 1560 ml 300 ml Output Total 1 ml Balance 1559 ml 300 ml medications Current Medications Medications Dose Ordered Sig/Jose L Route Start Time Stop Time Status Last Admin Dose Admin Gabapentin 300 mg TID PO 10/12/25 14:00 10/17/25 05:56 300 MG Pravastatin Sodium 10 mg DAILY PO 10/13/25 10:00 10/17/25 09:47 10 MG Sertraline HCl 100 mg DAILY PO 10/13/25 10:00 10/17/25 09:45 100 MG Diagnostic Test (Pha) 1 strip ACHS 10/12/25 11:30 10/17/25 11:30 1 STRIP Insulin Human Regular ACHS SC 10/12/25 11:30 10/17/25 11:30 2 UNITS Dextrose 50 ml UD PRN IV 10/12/25 11:30 Aspirin 81 mg DAILY PO 10/13/25 10:00 10/17/25 09:47 81 MG Acetaminophen 325 mg Q4HP PRN PO 10/12/25 11:30 10/16/25 15:14 325 MG Docusate Sodium 100 mg DAILY PO 10/13/25 10:00 10/17/25 09:44 100 MG Nitroglycerin 0.4 mg Q5MINP PRN SL 10/12/25 11:30 Morphine Sulfate 2 mg Q30M PRN IV 10/12/25 11:30 Pantoprazole Sodium 40 mg DAILY IV 10/13/25 10:00 10/17/25 09:43 40 MG Furosemide 40 mg DAILY IV 10/13/25 13:15 10/17/25 09:44 40 MG Levothyroxine Sodium 125 mcg DAILY@0630 PO 10/15/25 06:30 10/17/25 05:56 125 MCG Losartan Potassium 100 mg DAILY PO 10/16/25 10:00 10/17/25 09:46 100 MG Hydrochlorothiazide 25 mg DAILY PO 10/16/25 10:00 10/17/25 09:48 25 MG Acetaminophen/ Hydrocodone Bitart 1 tab Q8HP PRN PO 10/16/25 21:00 10/17/25 09:08 1 TAB objective GENERAL: Alert and oriented x 3. No acute distress. EYES: PERRL, EOMI. Anicteric. HENT: Moist mucous membranes. LUNGS: Clear to auscultation bilaterally. CARDIOVASCULAR: Regular rate and rhythm. ABDOMEN: Soft, non-tender and non-distended. EXTREMITIES: No edema. NEUROLOGIC: No focal neurological deficits. SKIN: Warm, dry. laboratory and microbiology Laboratory Tests 10/17/25 06:05 10/15/25 05:12 Test 10/17/25 06:05 Range/Units Serum Glucose 112 H 74-106 mg/dL Problem List Chest pain. Hypertension. Dyslipidemia. History of thyroid cancer status post thyroidectomy. Chronic pain. Glaucoma. Morbid obesity. Assessment/Plan Continued all current supportive medical care. Aspirin. Diuretics with Lasix. Losartan. Morphine for pain management. GI prophylactics. Additional plan as per the hospital course. Plan discussed with: Patient RYAN PASCUAL MD Oct 17, 2025 13:05
== END 2025-10-17 19:15 | disposition home or self-care (01) | DRG 205 ==
LOC: ER 09:00 → OVERFLOW 11:22 → TELE-CENTR 16:49
PROVIDERS: ADMIT Internal Medicine; ATTEND Internal Medicine
PROC: 4A023N7 Measurement of Cardiac Sampling and Pressure, Left Heart, Percutaneous Approach (ICD-10-PCS; principal; 2025-10-15)
PROC: B211YZZ Fluoroscopy of Multiple Coronary Arteries using Other Contrast (ICD-10-PCS; 2025-10-15)
DX: M94.0 Chondrocostal junction syndrome [Tietze] (principal); I50.33 Acute on chronic diastolic (congestive) heart failure; I13.0 Hypertensive heart and chronic kidney disease with heart failure and stage 1 through stage 4 chronic kidney disease, or unspecified chronic kidney disease; I35.0 Nonrheumatic aortic (valve) stenosis; E66.01 Morbid (severe) obesity due to excess calories; J45.909 Unspecified asthma, uncomplicated; N18.9 Chronic kidney disease, unspecified; M06.9 Rheumatoid arthritis, unspecified; E11.22 Type 2 diabetes mellitus with diabetic chronic kidney disease; K21.9 Gastro-esophageal reflux disease without esophagitis; E78.5 Hyperlipidemia, unspecified; F41.9 Anxiety disorder, unspecified; G89.29 Other chronic pain; H40.89 Other specified glaucoma; I49.9 Cardiac arrhythmia, unspecified; M10.9 Gout, unspecified; Z85.850 Personal history of malignant neoplasm of thyroid; Z90.49 Acquired absence of other specified parts of digestive tract; Z90.710 Acquired absence of both cervix and uterus; Z79.84 Long term (current) use of oral hypoglycemic drugs; Z79.899 Other long term (current) drug therapy; Z96.652 Presence of left artificial knee joint; Z83.3 Family history of diabetes mellitus; Z82.49 Family history of ischemic heart disease and other diseases of the circulatory system; Z68.32 Body mass index [BMI] 32.0-32.9, adult
CPT/HCPCS: 36415; 71045; 80048; 80053; 80061; 82962; 83036; 83735; 83880; 84443; 84484; 85025; 85610; 85730; 86850; 86900; 86901; 93005; 93306; 93458; 99152; G0378; J1815; J2250; J2470; Q9967